=== PATIENT | male | born 1990 | race Caucasian/White ===

== ENCOUNTER → 2017-06-22 | Outpatient (CLI) | payer SELFPAY ==
[2017-06-22 17:36] LABS: ABSOLUTE BASOPHILS # (AUTO) 0.1 10^3/uL (0.0-0.2); ABSOLUTE LYMPHOCYTES (AUTO) 1.2 10^3/uL (0.5-4.7); ABSOLUTE MONOCYTES (AUTO) 0.5 10^3/uL (0.1-1.4); ABSOLUTE NEUT (AUTO) 5.3 10^3/uL (1.7-8.2); BASOPHILS % (AUTO) 0.9 % (0-2); EOSINOPHILS % (AUTO) 0.4 % (0-6); HEMATOCRIT 49.2 % (37.9-51.0); HEMOGLOBIN 17.1 g/dL (13.5-17.0); LYMPHOCYTES % (AUTO) 17.2 % (13-45); MEAN CORPUSCULAR HGB CONC 34.8 g/dL (32.0-36.0); MEAN CORPUSCULAR VOLUME 89 fl (80-97); MONOCYTES % (AUTO) 6.4 % (3-13); PLATELET COUNT 250 10^3/uL (150-450); RED BLOOD COUNT 5.52 10^6/uL (4.35-5.55); RED CELL DISTRIBUTION WIDTH 14.2 % (11.5-14.0); SEGMENTED NEUTROPHILS % (AUTO) 75.1 % (42-78); TOTAL CELLS COUNTED % (AUTO) 100 %; WHITE BLOOD COUNT 7.1 10^3/uL (4.0-10.5)
[2017-06-22 17:55] LABS: ALANINE AMINOTRANSFERASE 186 U/L (21-72); ALBUMIN 4.8 g/dL (3.5-5.0); ALKALINE PHOSPHATASE 86 U/L (38-126); ANION GAP 11 (5-19); ASPARTATE AMINO TRANSFERASE 82 U/L (17-59); BILIRUBIN,DIRECT 0.3 mg/dL (0.0-0.4); BILIRUBIN,TOTAL 0.7 mg/dL (0.2-1.3); BLOOD UREA NITROGEN 13 mg/dL (7-20); CALCIUM 10.1 mg/dL (8.4-10.2); CARBON DIOXIDE 30 mmol/L (22-30); CHLORIDE 104 mmol/L (98-107); GLUCOSE 91 mg/dL (75-110); POTASSIUM 4.3 mmol/L (3.6-5.0); SODIUM 144.5 mmol/L (137-145); TOTAL PROTEIN 7.4 g/dL (6.3-8.2)
[2017-06-22 17:59] LABS: C-REACTIVE PROTEIN < 5.0 mg/L (<10.0)
[2017-06-22 18:13] LABS: ERYTHROCYTE SEDIMENTATION RATE 4 mm/hr (0-15)
== END ==
LOC: LAB 16:54
PROVIDERS: ATTEND Family Medicine
DX: R10.9 Unspecified abdominal pain (principal)
CPT/HCPCS: 36415; 80053; 85025; 85652; 86140

== ENCOUNTER 2017-07-24 22:18 | Emergency (ER) | payer SELFPAY ==
--- NOTE | 2017-07-24 22:47 | ER Document Report ---
ED Medical Screen (RME) - General Chief Complaint: Abdominal Pain Stated Complaint: ABDOMINAL PAIN Time Seen by Provider: 07/24/17 22:46 Mode of Arrival: Ambulatory Information source: Patient Notes: 27-year-old presents to ED for complaint of right lower abdominal pain since about 2152. He has no nausea vomiting or diarrhea. He states he has a dull and sharp pain. He has active bowel sounds. States last time he ate was at 2 PM he ate a sub-with an orange soda. Has a history of bursitis and has had his tonsils and adenoids removed. He denies smoking drinking or drugs. He does have tenderness to the right lower quadrant. Abdomen is still soft. I have greeted and performed a rapid initial assessment of this patient. A comprehensive ED assessment and evaluation of the patient, analysis of test results and completion of medical decision making process will be conducted by an additional ED providers. TRAVEL OUTSIDE OF THE [place] IN LAST 30 DAYS: No - Related Data Allergies/Adverse Reactions: cefaclor [From Ceclor] Allergy (Verified 02/21/16 14:28) Past Medical History - Social History Chew tobacco use (# tins/day): No Drug Abuse: None Neurological Medical History: Reports: Hx Migraine Renal/ Medical History: Denies: Hx Peritoneal Dialysis Past Surgical History: Reports: Hx Tonsillectomy - and Adenoidectomy Physical Exam - Vital signs Vitals: Temp Pulse Resp BP Pulse Ox 98.5 F 102 H 16 144/96 H 98 07/24/17 22:21 07/24/17 22:21 07/24/17 22:21 07/24/17 22:21 07/24/17 22:21 Course - Vital Signs Vital signs: Temp Pulse Resp BP Pulse Ox 98.5 F 102 H 16 144/96 H 98 07/24/17 22:21 07/24/17 22:21 07/24/17 22:21 07/24/17 22:21 07/24/17 22:21
[2017-07-24 23:49] LABS: ABSOLUTE BASOPHILS # (AUTO) 0.1 10^3/uL (0.0-0.2); ABSOLUTE LYMPHOCYTES (AUTO) 1.4 10^3/uL (0.5-4.7); ABSOLUTE MONOCYTES (AUTO) 0.6 10^3/uL (0.1-1.4); ABSOLUTE NEUT (AUTO) 7.1 10^3/uL (1.7-8.2); BASOPHILS % (AUTO) 0.7 % (0-2); EOSINOPHILS % (AUTO) 0.5 % (0-6); HEMATOCRIT 46.3 % (37.9-51.0); HEMOGLOBIN 16.4 g/dL (13.5-17.0); MEAN CORPUSCULAR HEMOGLOBIN 31.4 pg (27.0-33.4); MEAN CORPUSCULAR HGB CONC 35.3 g/dL (32.0-36.0); MEAN CORPUSCULAR VOLUME 89 fl (80-97); MONOCYTES % (AUTO) 6.4 % (3-13); PLATELET COUNT 266 10^3/uL (150-450); RED BLOOD COUNT 5.21 10^6/uL (4.35-5.55); RED CELL DISTRIBUTION WIDTH 14.4 % (11.5-14.0); SEGMENTED NEUTROPHILS % (AUTO) 77.4 % (42-78); TOTAL CELLS COUNTED % (AUTO) 100 %; WHITE BLOOD COUNT 9.1 10^3/uL (4.0-10.5)
[2017-07-25 00:03] LABS: ALANINE AMINOTRANSFERASE 119 U/L (21-72); ALBUMIN 4.6 g/dL (3.5-5.0); ALKALINE PHOSPHATASE 83 U/L (38-126); ANION GAP 12 (5-19); ASPARTATE AMINO TRANSFERASE 58 U/L (17-59); BILIRUBIN,DIRECT 0.1 mg/dL (0.0-0.4); BILIRUBIN,TOTAL 0.3 mg/dL (0.2-1.3); BLOOD UREA NITROGEN 14 mg/dL (7-20); CALCIUM 9.6 mg/dL (8.4-10.2); CARBON DIOXIDE 28 mmol/L (22-30); CHLORIDE 104 mmol/L (98-107); GLUCOSE 89 mg/dL (75-110); LIPASE 140.3 U/L (23-300)
[2017-07-25 00:10] LABS: APPEARANCE,URINE CLEAR; BILIRUBIN,URINE NEGATIVE (NEGATIVE); COLOR,URINE YELLOW; GLUCOSE, URINE NEGATIVE (NEGATIVE); KETONES,URINE NEGATIVE (NEGATIVE); LEUKOCYTE ESTERASE,URINE NEGATIVE (NEGATIVE); NITRITE,URINE NEGATIVE (NEGATIVE); PROTEIN,URINE 30 mg/dL (NEGATIVE); UROBILINOGEN,URINE NEGATIVE mg/dL (<2.0)
[2017-07-25] MEDS ORDERED: NORMAL SALINE 1000 ML 1,000 ML IV ONE (00:31)
[2017-07-25] MEDS ORDERED: HYDROMORPHONE HCL INJ/PF 2 MG/ML AMPULE IV ONE (00:31)
--- NOTE | 2017-07-25 00:31 | ER Document Report ---
ED General - General Chief Complaint: Abdominal Pain Stated Complaint: ABDOMINAL PAIN Time Seen by Provider: 07/24/17 22:46 Mode of Arrival: Ambulatory Notes: Patient is a 27-year-old male presents with complaint of pain over the right lower quadrant of the abdomen. Also pain in the flank and back. No history of kidney stones. Recent fevers. No vomiting. No diarrhea. Pain started approximately 2 hours prior to arrival to the ER. No urinary symptoms. TRAVEL OUTSIDE OF THE [place] IN LAST 30 DAYS: No - Related Data Allergies/Adverse Reactions: cefaclor [From Ceclor] Allergy (Verified 02/21/16 14:28) sulfamethoxazole [From Bactrim] Allergy (Verified 07/25/17 00:46) tramadol [From Ultram] Allergy (Verified 07/25/17 00:46) trimethoprim [From Bactrim] Allergy (Verified 07/25/17 00:46) Past Medical History - General Information source: Patient - Social History Smoking Status: Never Smoker Chew tobacco use (# tins/day): No Frequency of alcohol use: None Drug Abuse: None Family History: Other - Migraine headaches Patient has suicidal ideation: No Patient has homicidal ideation: No Neurological Medical History: Reports: Hx Migraine Renal/ Medical History: Denies: Hx Peritoneal Dialysis Past Surgical History: Reports: Hx Tonsillectomy - and Adenoidectomy Review of Systems - Review of Systems Notes: My Normal Review Basic REVIEW OF SYSTEMS: CONSTITUTIONAL : Denies fever, chills, or sweats. Denies recent illness. EENT: Denies eye, ear, throat, or mouth pain or symptoms. Denies nasal or sinus congestion. RESPIRATORY: Denies cough, cold, or chest congestion. Denies shortness of breath, difficulty breathing, or wheezing. GASTROINTESTINAL: Right-sided abdominal pain. GENITOURINARY: Denies difficulty urinating, painful urination, burning, frequency, or blood in urine. MUSCULOSKELETAL: Denies neck or back pain or joint pain or swelling. SKIN: Denies rash or skin lesions. NEUROLOGICAL: Denies altered mental status or loss of consciousness. ALL OTHER SYSTEMS REVIEWED AND NEGATIVE. Physical Exam - Vital signs Vitals: Temp Pulse Resp BP Pulse Ox 98.5 F 102 H 16 144/96 H 98 07/24/17 22:21 07/24/17 22:21 07/24/17 22:21 07/24/17 22:21 07/24/17 22:21 - Notes Notes: General Appearance: Well nourished, alert, cooperative, no acute distress, mild obvious discomfort. Well-appearing. Vitals: reviewed, See vital signs table. Head: no swelling or tenderness to the head Eyes: PERRL, EOMI, Conjuctiva clear Mouth: No decreasd moisture Lungs: No wheezing, No rales, No rhonci, No accessory muscle use, good air exchange bilaterally. Heart: Normal rate, Regular rythm, No murmur, no rub Abdomen: Normal BS, soft, No rigidity, mild pain to palpation of the right lower quadrant of the abdomen. Remainder of the abdomen is nontender., No guarding, no rebound, no abdominal masses Genital: Mild tenderness in the inguinal area. There is no swelling or masses. No evidence of hernia on palpation. No swelling to the testicles. No pain to palpation of the testicles. Back: Some pain to palpation over the right lower back. No redness or swelling over the back. Extremities: strength 5/5 in all extremities, good pulses in all extremities, no swelling or tenderness in the extremities, no edema. Skin: warm, dry, appropriate color, no rash Neuro: speech clear, oriented x 3, normal affect, responds appropriately to questions. Course - Re-evaluation Re-evalutation: 07/25/17 00:29 Patient may lower quadrant pain that is reproducible also has pain in his back. He has no leukocytosis and no fever and his pain is only been there for 2 hours. I informed patient that my recommendation is to do a wait and watch approach and repeat his labs in 12 hours and reevaluate him. He continues to have pain or if his abdominal exam is more concerning or if his labs are showing concerns then do a CT scan at that time. I informed him that doing a CT scan now quite possibly will not show evidence of appendicitis even if he is an early appendicitis being that he has not had the pain for very long he has no leukocytosis. I informed him that if we do CT scan now that it will likely be negative and there is a chance he might need a repeat scan in 1224 hrs. I informed him that limiting radiation will be of his benefit as recurrent CT scans can lead to cancer. I try to explain to the this to the patient length. Patient says he still wants a CT scan performed now. He is understanding that this does lead to increase exposure of radiation could lead to cancer. He is completely understanding of this. He also has a family member in the room who is also listen to conversation. Patient still wants CT scan performed now and does not want to wait as I recommended. 07/25/17 05:55 CT scan was performed and did not show evidence of appendicitis. The pain is actually improved now. He says he has just very mild pain. He did have lower abdominal pain and therefore due to testicular exam. This is negative. Patient denies any pain in his testicles. CT scan does show an identical finding of a lesion on the right kidney. I did follow this up with an ultrasound which confirms that the lesion is there. Official read from radiologist is not available at this time because they are having difficulty transferring her images to the radiologist. I informed the patient the radiologist read of the CT scan. I informed him that even though cancer is less likely some important he follows closely with his doctor for reevaluation and repeat imaging as well as possible biopsy. Regards to his abdominal pain, informed him that there was appendicitis still a possibility although I think this is less likely. Informed to return to ER within 24 hours if he still having pain. I encourage him return to ER immediately if he has worsening pain , fevers, vomiting, or feels unwell. Patient agrees with plan will be discharged home. Dictation of this chart was performed using voice recognition software; therefore, there may be some unintended grammatical errors. - Vital Signs Vital signs: Temp Pulse Resp BP Pulse Ox 98.4 F 83 16 118/96 H 98 07/25/17 03:23 07/25/17 03:23 07/25/17 03:23 07/25/17 03:23 07/24/17 22:21 - Laboratory Result Diagrams: 07/24/17 23:15 07/24/17 23:15 Laboratory results interpreted by me: 07/24/17 07/24/17 07/24/17 23:15 23:15 23:15 RDW 14.4 H ALT 119 H Urine Protein 30 H Discharge - Discharge Clinical Impression: Kidney lesion Abdominal pain Qualifiers: Abdominal location: right lower quadrant Qualified Code(s): R10.31 - Right lower quadrant pain Condition: Good Disposition: HOME, SELF-CARE Instructions: Oral Narcotic Medication ([facility]) Additional Instructions: Your CT scan showed a lesion in your kidney that is also seen on ultrasound. These are rarely cancer, but cancer is always still a possibility. You therefore need to follow up with Dr. Gurrola for reevaluation and to arrange a repeat ultrasound and possible biopsy. As for your abdominal pain;you CT scan did not show evidence of appendicitis. As discussed with you early appendicitis does nto always show up on CT scan therefore you need to return to the ER within 24 hours for reevaluation if you have recurrent pain or feel unwell. Please return to the ER immediately if you have worsening pain, fevers, vomiting , or have any further concerns. Referrals: RAS GURROLA MD [Primary Care Provider] - Follow up in 3-5 days
--- NOTE | 2017-07-25 02:11 | RADIOLOGY REPORT (SQ) ---
EXAM DESCRIPTION: CT ABDOMEN AND PELVIS WITH CONTRAST CLINICAL HISTORY: right lower quad abdominal pain COMPARISON: None Available. TECHNIQUE: CT of the abdomen and pelvis are performed during IV bolus administration of 100 mL of Isovue-370. Delayed phase imaging also obtained. DLP: 2552.85 mGycm FINDINGS: Abdomen: The liver has normal size and density. No intrahepatic mass or biliary dilatation. No calcified gallstones. The spleen, pancreas, and adrenal glands are unremarkable. In the inferior pole of the right kidney there is a 1.9 cm hypodensity that demonstrates enhancement with washout on delayed phase images. Bosniak class I 1.0 cm left renal cyst. No hydronephrosis or obstructing calculus. The aorta and IVC have normal caliber and position. The portal vein patent. The proximal visceral and renal arteries are patent. No free intraperitoneal air. The stomach and duodenum have normal course. Pelvis: Prostate is not enlarged. Urinary bladder is unremarkable. No free pelvic fluid or lymphadenopathy. No dilated loops of large or small bowel. Normal appendix. The visualized lung bases are clear. No destructive bone lesions identified. IMPRESSION: 1. In the inferior pole of the right kidney there is an enhancing lesion with washout on delayed phase imaging measuring 1.9 cm. This would be an atypical age for renal cell carcinoma however differential considerations include renal cell carcinoma, lipid poor angiomyolipoma, renal oncocytoma or focal pyelonephritis. Correlation with urinalysis recommended. Short interval follow-up imaging in 2-4 weeks with contrast-enhanced CT / MRI recommended. This exam was performed according to our departmental dose-optimization program, which includes automated exposure control, adjustment of the mA and/or kV according to patient size and/or use of iterative reconstruction technique.
[2017-07-25] MEDS ORDERED: HYDROCODONE/ACETAMINOPHEN 5-325 MG (6 TAB/ER DISP) PO PRN (05:48)
[2017-07-25 06:04] VITALS: BP 117/59
--- NOTE | 2017-07-25 08:23 | RADIOLOGY REPORT (SQ) ---
EXAM DESCRIPTION: U/S RETROPERITON (RENAL/AORTA) COMPLETED DATE/TIME: 07/25/2017 4:57 am REASON FOR STUDY: right kidney lesion CT report; Indetermine 1.9 cm mass lower pole right kidney. C ortical cyst upper pole left kidney. COMPARISON: CT abdomen and pelvis with contrast 07/25/2017. TECHNIQUE: Static and dynamic grayscale images acquired of the aorta and stored on PACs. Selected co chata Doppler and spectral images recorded. LIMITATIONS: None. FINDINGS: RIGHT KIDNEY: The right kidney measures 12.7 x 5.8 x 6 cm. In the lower pole there is a hyper echoic irregular marginated mass measuring 2.2 x 2.4 x 2 cm with evidence of color Doppler keturah w. LEFT KIDNEY: The left kidney measures 11.4 x 5.7 x 5.4 cm. In the mid left kidney there is evidence of a circumscribed hypoechoic mass measuring 1.8 x 1.5 x 1.6 cm which could represent a complex cyst . URINARY BLADDER: Bilateral ureteral jets noted. IMPRESSION: 1. Findings consistent with a 2.2 x 2.4 x 2 cm hyperechoic mass lower pole right kidney with irregular margin. Differential again includes lipid poor angiomyolipoma, renal cell carcinoma. Follow-up with MRI could be useful. 2. Findings most consistent with small 1.8 cm cortical cyst mid left kidney. TECHNICAL DOCUMENTATION: JOB ID: [id number] [id number] 2010 [employer]- All Rights Reserved
== END 2017-07-25 06:04 | disposition home or self-care (01) ==
LOC: ER 22:18
DX: R10.31 Right lower quadrant pain (principal); M54.9 Dorsalgia, unspecified; N28.9 Disorder of kidney and ureter, unspecified; Z88.1 Allergy status to other antibiotic agents; Z88.5 Allergy status to narcotic agent
CPT/HCPCS: 99284; 96361; 96374; 36415; 83690; 85025; 80053; 81001; 76770; 74177; J1170; J7030

== ENCOUNTER 2017-07-28 03:52 | Emergency (ER) | payer SELFPAY ==
[2017-07-28] MEDS ORDERED: LIDOCAINE 5% (700 MG) TRANSDERMAL ADH..PATCH TP ONE (06:42)
[2017-07-28] MEDS ORDERED: KETOROLAC TROMETHAMINE INJ/PF 30 MG/1 ML SDV IV ONE (06:42)
--- NOTE | 2017-07-28 06:43 | ER Document Report ---
ED Cardiac - General Chief Complaint: Chest Pain Stated Complaint: CHEST PAIN Time Seen by Provider: 07/28/17 06:31 Notes: The patient is a 27-year-old male who presents with 4 hours of left upper chest wall pain that is worse with movement and palpation. He was lifting heavy buckets at work yesterday. He has not tried anything help. Denies smoking, family history of early cardiac issues, shortness of breath, fevers, cough, leg swelling, hemoptysis, back pain, numbness, tingling or rash. TRAVEL OUTSIDE OF THE [place] IN LAST 30 DAYS: No - Related Data Allergies/Adverse Reactions: cefaclor [From Ceclor] Allergy (Verified 07/28/17 03:58) sulfamethoxazole [From Bactrim] Allergy (Verified 07/28/17 03:58) tramadol [From Ultram] Allergy (Verified 07/28/17 03:58) trimethoprim [From Bactrim] Allergy (Verified 07/28/17 03:58) Past Medical History - General Information source: Patient - Social History Smoking Status: Never Smoker Frequency of alcohol use: None Drug Abuse: None Family History: Other - Migraine headaches Patient has suicidal ideation: No Patient has homicidal ideation: No Neurological Medical History: Reports: Hx Migraine Renal/ Medical History: Denies: Hx Peritoneal Dialysis Past Surgical History: Reports: Hx Tonsillectomy - and Adenoidectomy Review of Systems - Review of Systems Notes: REVIEW OF SYSTEMS: CONSTITUTIONAL: -fevers, -chills EENT: -eye pain, -difficulty swallowing, -nasal congestion CARDIOVASCULAR: +chest pain, -syncope. RESPIRATORY: -cough, -SOB GASTROINTESTINAL: -abdominal pain, -nausea, -vomiting, -diarrhea GENITOURINARY: -dysuria, -hematuria MUSCULOSKELETAL: -back pain, -neck pain SKIN: -rash or skin lesions. HEMATOLOGIC: -easy bruising or bleeding. LYMPHATIC: -swollen, enlarged glands. NEUROLOGICAL: -altered mental status or loss of consciousness, -headache, - neurologic symptoms PSYCHIATRIC: -anxiety, -depression. ALL OTHER SYSTEMS REVIEWED AND NEGATIVE. Physical Exam - Vital signs Vitals: Temp Pulse Resp BP Pulse Ox 98.5 F 81 16 133/84 H 96 07/28/17 04:09 07/28/17 04:09 07/28/17 04:09 07/28/17 04:09 07/28/17 04:09 - Notes Notes: PHYSICAL EXAMINATION: GENERAL: Well-appearing, well-nourished and in no acute distress. HEAD: Atraumatic, normocephalic. EYES: Pupils equal round and reactive to light, extraocular movements intact, sclera anicteric, conjunctiva are normal. ENT: nares patent, oropharynx clear without exudates. Moist mucous membranes. NECK: Normal range of motion, supple without lymphadenopathy LUNGS: Breath sounds clear to auscultation bilaterally and equal. No wheezes rales or rhonchi. CHEST WALL: Tenderness over left upper chest wall, reproduces symptoms. HEART: Regular rate and rhythm without murmurs ABDOMEN: Soft, nontender, normoactive bowel sounds. No guarding, no rebound. No masses appreciated. EXTREMITIES: Normal range of motion, no pitting or edema. No cyanosis. NEUROLOGICAL: Cranial nerves grossly intact. Normal speech, normal gait. Normal sensory and motor exams. PSYCH: Normal mood, normal affect. SKIN: Warm, Dry, normal turgor, no rashes or lesions noted. Course - Re-evaluation Re-evalutation: Patient appears very well and his vital signs are normal. EKG does not show any evidence of acute ischemia and he is PERC negative. His HEART score is 0. Suspect chest wall strain and instructed him about treatment with anti- inflammatories and Lidoderm patch with strict follow-up at his primary care physician for recheck of his symptoms. Given return precautions and he understands. - Vital Signs Vital signs: Temp Pulse Resp BP Pulse Ox 98.5 F 81 13 109/71 97 07/28/17 04:09 07/28/17 04:09 07/28/17 06:00 07/28/17 06:01 07/28/17 06:01 - Diagnostic Test Radiology reviewed: Image reviewed, Reports reviewed Radiology results interpreted by me: CXR: NAD - EKG Interpretation by Me EKG shows normal: Sinus rhythm, [place], Intervals, QRS Complexes, ST-T Waves Rate: Normal Discharge - Discharge Clinical Impression: Chest pain Qualifiers: Chest pain type: unspecified Qualified Code(s): R07.9 - Chest pain, unspecified Condition: Stable Disposition: HOME, SELF-CARE Additional Instructions: CHEST PAIN OF UNCLEAR CAUSE: The exact cause of your chest pain isn't clear. Fortunately, there is no evidence of a dangerous medical condition. Further testing may be required to find the source of the pain. Most often, we find that this pain is coming from the chest wall -- the muscles or rib joints in the chest. But chest pain can come from the lung and lung lining, the esophagus, the heart valves or heart lining, and even the stomach or gallbladder. Rest. Eat lightly until the pain is gone. We may prescribe medicine for pain and inflammation. You should call the physician immediately if the pain radiates to the shoulder, jaw or arms; if you start to run a fever or develop a cough; or if you develop shortness of breath, or other new or alarming symptoms. NORMAL EXAM AND WORKUP: At this time, your examination and workup show no significant abnormality. No significant abnormal physical findings were noted. All laboratory, EKG, and imaging (x-ray, CT scans, ultrasound) studies that were ordered show no significant abnormality. Although your examination and all studies that were ordered showed no significant abnormal finding, there are no examinations and no studies that are 100% accurate. There is always the possibility that some abnormality could exist and not be detected with physical examination or within the limits and capabilities of laboratory and other studies. You should return or follow up as you were instructed on your visit today for further evaluation if your symptoms do not resolve. CHEST WALL PAIN: Your chest pain may be coming from the chest wall. This is often caused by straining the muscles or joints in the chest during physical activity, direct trauma, coughing, or vigorous vomiting. Persons with arthritis are especially prone to this type of pain, due to inflammation of the cartilage joints near the breast bone. Occasionally, no cause can be found. Rest from strenuous physical activity. This kind of chest pain is usually made worse by movement of the chest. Depending on the symptoms, we may prescribe medicine for pain, muscle relaxation, and antiinflammatory effects. If the pain is new, and seems to be due to muscle strain, cold packs can help. Otherwise, apply gentle warmth to the painful area for 15 minutes every hour or two. You should call contact the doctor immediately if things change. Further evaluation is needed if you develop a fever or cough, if the nature of the pain changes, or if you become short of breath. FOLLOW-UP CARE: If you have been referred to a physician for follow-up care, call the physician s office for an appointment as you were instructed or within the next two days. If you experience worsening or a significant change in your symptoms, notify the physician immediately or return to the Emergency Department at any time for re-evaluation. Prescriptions: Lidocaine [Lidoderm 5% (700 mg) Transdermal Patch] 1 patch TP DAILY #10 adh..patch Naproxen [Naprosyn 250 mg Tablet] 500 mg PO Q12H PRN #14 tablet PRN Reason: Forms: Elevated Blood Pressure Referrals: MAHESH CHARLES DO [NO LOCAL MD] - Follow up as needed
[2017-07-28 06:59] VITALS: BP 125/86
--- NOTE | 2017-07-28 07:24 | RADIOLOGY REPORT (SQ) ---
EXAM DESCRIPTION: CHEST SINGLE VIEW CLINICAL HISTORY: chest pain COMPARISON: None. FINDINGS: Single frontal view of the chest. The cardiomediastinal silhouette has normal size and contour. No consolidation, pneumothorax, or pleural effusion. No displaced rib fractures identified. Upper abdominal soft tissues are unremarkable. Leads overlie the chest. IMPRESSION: 1. No acute pulmonary process identified.
--- NOTE | 2017-07-28 10:21 | EKG REPORT ---
SEVERITY:- OTHERWISE NORMAL ECG - SINUS RHYTHM BORDERLINE RIGHT AXIS DEVIATION : Confirmed by: Lori Mak 28-Jul-2017 10:19:50
== END 2017-07-28 07:00 | disposition home or self-care (01) ==
LOC: ER 03:52
DX: R07.9 Chest pain, unspecified (principal); R07.89 Other chest pain; X50.0XXA Overexertion from strenuous movement or load, initial encounter
CPT/HCPCS: 93005; 99285; 96374; 71045; 93010; J1885

== ENCOUNTER 2017-10-29 05:45 | Emergency (ER) | payer SELFPAY ==
[2017-10-29] MEDS ORDERED: LIDOCAINE 5% (700 MG) TRANSDERMAL ADH..PATCH TP ONE (07:11)
[2017-10-29] MEDS ORDERED: KETOROLAC TROMETHAMINE INJ/PF 30 MG/1 ML SDV IV ONE (07:11)
--- NOTE | 2017-10-29 07:13 | ER Document Report ---
ED General - General Chief Complaint: Chest Pain Stated Complaint: CHEST PAIN Time Seen by Provider: 10/29/17 06:57 TRAVEL OUTSIDE OF THE [place] IN LAST 30 DAYS: No - HPI Patient complains to provider of: Left-sided chest pain Notes: Patient coming in for left-sided chest pain ongoing for approximate last 12 hours. Patient denies any trauma states does hurt to take a deep breath and movement of pain with movement of the left shoulder. Patient states numbness going down his left arm. Patient states the numbness and left arm intermittent for approximately a week. Patient denies smoking drinking any drug use. Patient denies any past medical history. Patient denies any recent travel denies any fevers chills nausea vomiting diarrhea. - Related Data Allergies/Adverse Reactions: cefaclor [From Ceclor] Allergy (Verified 07/28/17 03:58) sulfamethoxazole [From Bactrim] Allergy (Verified 07/28/17 03:58) tramadol [From Ultram] Allergy (Verified 07/28/17 03:58) trimethoprim [From Bactrim] Allergy (Verified 07/28/17 03:58) Past Medical History - Social History Smoking Status: Never Smoker Frequency of alcohol use: Occasional Family History: Other - Migraine headaches Patient has suicidal ideation: No Patient has homicidal ideation: No Neurological Medical History: Reports: Hx Migraine Renal/ Medical History: Denies: Hx Peritoneal Dialysis Past Surgical History: Reports: Hx Tonsillectomy - and Adenoidectomy Review of Systems - Review of Systems Constitutional: No symptoms reported EENT: No symptoms reported Cardiovascular: Chest pain Respiratory: No symptoms reported Gastrointestinal: No symptoms reported Genitourinary: No symptoms reported Male Genitourinary: No symptoms reported Musculoskeletal: No symptoms reported Skin: No symptoms reported Hematologic/Lymphatic: No symptoms reported Neurological/Psychological: No symptoms reported -: Yes All other systems reviewed and negative Physical Exam - Vital signs Vitals: Temp Pulse Resp BP Pulse Ox 98.4 F 91 17 133/67 H 95 10/29/17 05:53 10/29/17 05:53 10/29/17 05:53 10/29/17 05:53 10/29/17 05:53 Interpretation: Normal - General General appearance: Appears well, Alert - HEENT Head: Normocephalic, Atraumatic Eyes: Normal Pupils: PERRL - Respiratory Respiratory status: No respiratory distress Chest status: Tender - Tenderness to palpation the left chest wall were consistent with possible PIC muscle strength the patient is significantly tender at palpation of the coracoid process along the sternal border and along the left lateral rib cage. No signs of trauma no rashes Breath sounds: Normal Chest palpation: Normal - Cardiovascular Rhythm: Regular Heart sounds: Normal auscultation Murmur: No - Abdominal Inspection: Normal Distension: No distension Bowel sounds: Normal Tenderness: Nontender Organomegaly: No organomegaly - Back Back: Normal, Nontender - Extremities General upper extremity: Normal inspection, Nontender, Normal color, Normal ROM , Normal temperature General lower extremity: Normal inspection, Nontender, Normal color, Normal ROM , Normal temperature, Normal weight bearing. No: Asad's sign - Neurological Neuro grossly intact: Yes Cognition: Normal Orientation: AAOx4 [place] Coma Scale Eye Opening: Spontaneous Gustavo Coma Scale Verbal: Oriented Gustavo Coma Scale Motor: Obeys Commands Gustavo Coma Scale Total: 15 Speech: Normal Motor strength normal: LUE, RUE, LLE, RLE Sensory: Normal - Psychological Associated symptoms: Normal affect, Normal mood - Skin Skin Temperature: Warm Skin Moisture: Dry Skin Color: Normal Course - Re-evaluation Re-evalutation: 10/29/17 15:00 Do believe patient has more likely take muscle strain or chest wall pain. Patient was educated about use Tylenol Motrin. Patient will be discharged home. The patient has atypical chest pain as the patient's chest pain is not suggestive of pulmonary embolus, cardiac ischemia, aortic dissection, or other serious etiology. Given the extremely low risk of these diagnoses further testing and evaluation for these possibilities does not appear to be indicated at this time. The patient has been instructed to return if the symptoms worsen or change in any way. - Vital Signs Vital signs: Temp Pulse Resp BP Pulse Ox 98.1 F 83 15 103/68 98 10/29/17 07:56 10/29/17 07:56 10/29/17 07:56 10/29/17 07:56 10/29/17 07:56 Discharge - Discharge Clinical Impression: Chest wall pain Condition: Good Disposition: HOME, SELF-CARE Instructions: Anti-Inflammatory Medication ([facility]), Chest Wall Pain ([facility]) Additional Instructions: Chest pain today is consistent with muscle skeletal pain . Your EKG does not show signs of cardiac damage. Your physical examination is consistent with chest wall pain. Treatment for chest wall plane involves hydration Tylenol and anti-inflammatory medication such as Motrin. He may also place warm packs and ice packs on the chest wall to help out with pain. Return to ER symptoms worsen. Follow-up with your primary care physician Prescriptions: Ibuprofen [Motrin 800 mg Tablet] 800 mg PO Q8H PRN #30 tab PRN Reason: Forms: Return to Work Referrals: RAS GURROLA MD [Primary Care Provider] - Follow up as needed
[2017-10-29 07:58] VITALS: BP 103/68
--- NOTE | 2017-10-29 08:42 | EKG REPORT ---
SEVERITY:- NORMAL ECG - SINUS RHYTHM : Confirmed by: Lori Mak 29-Oct-2017 08:41:08
== END 2017-10-29 07:59 | disposition home or self-care (01) ==
LOC: ER 05:45
DX: R07.89 Other chest pain (principal); R20.0 Anesthesia of skin; Z88.1 Allergy status to other antibiotic agents; Z88.5 Allergy status to narcotic agent
CPT/HCPCS: 93005; 99284; 96374; 93010; J1885

== ENCOUNTER 2018-01-24 14:47 | Emergency (ER) | payer OTHER ==
[2018-01-24] MEDS ORDERED: DIPH/PERTUSS(ACELL)/TETANUS VAC/PF 0.5 ML SYR (>=10YO) IM ONE (15:11)
[2018-01-24] MEDS ORDERED: IBUPROFEN 800 MG TABLET PO ONE (15:11)
[2018-01-24] MEDS ORDERED: HYDROCODONE/ACETAMINOPHEN 5-325 MG TABLET PO ONE (15:11)
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
[2018-01-24 16:28] VITALS: BP 137/86
== END 2018-01-24 16:40 | disposition home or self-care (01) ==
LOC: ER 14:47
DX: S70.01XA Contusion of right hip, initial encounter (principal); S93.421A Sprain of deltoid ligament of right ankle, initial encounter; S50.311A Abrasion of right elbow, initial encounter; V28.4XXA Motorcycle driver injured in noncollision transport accident in traffic accident, initial encounter
CPT/HCPCS: 99283; 90471; 73610; 73630; 90715; L1902

== ENCOUNTER 2019-02-03 21:20 | Emergency (ER) | payer SELFPAY ==
[2019-02-04] MEDS ORDERED: KETOROLAC TROMETHAMINE 60 MG/2 ML SDV IM ONE (00:54)
[2019-02-04] MEDS ORDERED: OXYCODONE-ACETAMINOPHEN 5-325 MG TABLET PO ONE (00:54)
[2019-02-04] MEDS ORDERED: ONDANSETRON 4 MG TAB.RAPDIS PO ONE (00:54)
--- NOTE | 2019-02-04 00:59 | ER Document Report ---
Addendum entered and electronically signed by BARBER LOGAN PA 02/04/19 01:08: Course - Re-evaluation Re-evalutation: 02/04/19 01:08 THIS TRIAGE WAS ENTERED ON THE WRONG PATIENT, PLEASE DISREGARD - Vital Signs Vital signs: Temp Pulse Resp BP Pulse Ox 98.5 F 84 24 H 136/85 H 95 02/03/19 21:39 02/03/19 21:39 02/03/19 21:39 02/03/19 21:39 02/03/19 21:39 Original Note: ED Medical Screen (RME) - General Chief Complaint: Abdominal Pain Stated Complaint: ABDOMINAL PAIN Time Seen by Provider: 02/04/19 00:35 Primary Care Provider: RAS GURROLA MD [Primary Care Provider] - Follow up as needed Notes: 28-year-old male chief complaint of sudden onset right flank pain radiating to the right abdomen that started at 9:30 PM tonight, he does report a history of kidney stones and he is always been able to pass them. Patient has been vomiting multiple times. He denies any other complaints. TRAVEL OUTSIDE OF THE [place] IN LAST 30 DAYS: No - Related Data Allergies/Adverse Reactions: cefaclor [From Ceclor] Allergy (Verified 07/28/17 03:58) sulfamethoxazole [From Bactrim] Allergy (Verified 07/28/17 03:58) tramadol [From Ultram] Allergy (Verified 07/28/17 03:58) trimethoprim [From Bactrim] Allergy (Verified 07/28/17 03:58) Past Medical History Neurological Medical History: Reports: Hx Migraine Renal/ Medical History: Denies: Hx Peritoneal Dialysis Past Surgical History: Reports: Hx Tonsillectomy - and Adenoidectomy Physical Exam - Vital signs Vitals: Temp Pulse Resp BP Pulse Ox 98.5 F 84 24 H 136/85 H 95 02/03/19 21:39 02/03/19 21:39 02/03/19 21:39 02/03/19 21:39 02/03/19 21:39 - General General appearance: No: Appears well - Patient appears to be in a lot of pain, diaphoretic, vomiting - Abdominal Tenderness: Tender - Tender generally over the right side of the abdomen, nonspecific, no overt guarding noted Course - Re-evaluation Re-evalutation: 02/04/19 00:59 I have greeted and performed a rapid initial assessment of this patient. A comprehensive ED assessment and evaluation of the patient, analysis of test results and completion of the medical decision making process will be conducted by additional ED providers. - Vital Signs Vital signs: Temp Pulse Resp BP Pulse Ox 98.5 F 84 24 H 136/85 H 95 02/03/19 21:39 02/03/19 21:39 02/03/19 21:39 02/03/19 21:39 02/03/19 21:39 Doctor's Discharge - Discharge Referrals: RAS GURROLA MD [Primary Care Provider] - Follow up as needed
[2019-02-04] MEDS ORDERED: HYDROCODONE/ACETAMINOPHEN 5-325 MG TABLET PO ONE (01:14)
--- NOTE | 2019-02-04 01:25 | ER Document Report ---
ED Medical Screen (RME) - General Chief Complaint: Abdominal Pain Stated Complaint: ABDOMINAL PAIN Time Seen by Provider: 02/04/19 00:35 Primary Care Provider: RAS GURROLA MD [Primary Care Provider] - Follow up as needed Notes: Patient is a 28-year-old male who presents to the emergency department with a chief complaint of right lower quadrant abdominal pain. His pain started 1 hour prior to arrival to the emergency department. States he is having normal bowel movements. He has never had anything like this before. No past abdominal surgical history. Exam: Tender right lower quadrant abdomen, exam limited due to obesity and patient in sitting position. I have greeted and performed a rapid initial assessment of this patient. A comprehensive ED assessment and evaluation of the patient, analysis of test results and completion of medical decision making process will be conducted by an additional ED providers. TRAVEL OUTSIDE OF THE [place] IN LAST 30 DAYS: No - Related Data Allergies/Adverse Reactions: cefaclor [From Ceclor] Allergy (Verified 07/28/17 03:58) sulfamethoxazole [From Bactrim] Allergy (Verified 07/28/17 03:58) tramadol [From Ultram] Allergy (Verified 07/28/17 03:58) trimethoprim [From Bactrim] Allergy (Verified 07/28/17 03:58) Past Medical History Neurological Medical History: Reports: Hx Migraine Renal/ Medical History: Denies: Hx Peritoneal Dialysis Past Surgical History: Reports: Hx Tonsillectomy - and Adenoidectomy Physical Exam - Vital signs Vitals: Temp Pulse Resp BP Pulse Ox 98.5 F 84 24 H 136/85 H 95 02/03/19 21:39 02/03/19 21:39 02/03/19 21:39 02/03/19 21:39 02/03/19 21:39 Course - Vital Signs Vital signs: Temp Pulse Resp BP Pulse Ox 98.5 F 84 24 H 136/85 H 95 02/03/19 21:39 02/03/19 21:39 02/03/19 21:39 02/03/19 21:39 02/03/19 21:39 Doctor's Discharge - Discharge Referrals: RAS GURROLA MD [Primary Care Provider] - Follow up as needed
[2019-02-04 01:54] LABS: ABSOLUTE BASOPHILS # (AUTO) 0.1 10^3/uL (0.0-0.2); ABSOLUTE EOSINOPHILS # (AUTO) 0.2 10^3/uL (0.0-0.6); ABSOLUTE LYMPHOCYTES (AUTO) 1.7 10^3/uL (0.5-4.7); ABSOLUTE MONOCYTES (AUTO) 0.4 10^3/uL (0.1-1.4); BASOPHILS % (AUTO) 1.3 % (0-2); HEMATOCRIT 49.6 % (37.9-51.0); HEMOGLOBIN 16.8 g/dL (13.5-17.0); LYMPHOCYTES % (AUTO) 26.2 % (13-45); MEAN CORPUSCULAR HEMOGLOBIN 30.3 pg (27.0-33.4); MEAN CORPUSCULAR HGB CONC 33.9 g/dL (32.0-36.0); MEAN CORPUSCULAR VOLUME 90 fl (80-97); MONOCYTES % (AUTO) 6.9 % (3-13); PLATELET COUNT 275 10^3/uL (150-450); RED BLOOD COUNT 5.53 10^6/uL (4.35-5.55); RED CELL DISTRIBUTION WIDTH 14.3 % (11.5-14.0); SEGMENTED NEUTROPHILS % (AUTO) 62.6 % (42-78); TOTAL CELLS COUNTED % (AUTO) 100 %; WHITE BLOOD COUNT 6.4 10^3/uL (4.0-10.5)
[2019-02-04 02:09] LABS: BILIRUBIN,TOTAL 0.7 mg/dL (0.2-1.3)
[2019-02-04 03:11] LABS: APPEARANCE,URINE CLEAR; BILIRUBIN,URINE NEGATIVE (NEGATIVE); COLOR,URINE YELLOW; GLUCOSE, URINE NEGATIVE (NEGATIVE); KETONES,URINE TRACE mg/dL (NEGATIVE); LEUKOCYTE ESTERASE,URINE NEGATIVE (NEGATIVE); NITRITE,URINE NEGATIVE (NEGATIVE); PROTEIN,URINE NEGATIVE (NEGATIVE); URINE SPECIFIC GRAVITY 1.025
--- NOTE | 2019-02-04 04:02 | ER Document Report ---
ED GI/ - General Chief Complaint: Abdominal Pain Stated Complaint: ABDOMINAL PAIN Time Seen by Provider: 02/04/19 00:35 Primary Care Provider: RAS GURROLA MD [Primary Care Provider] - Follow up as needed Notes: Patient is a 28-year-old male that comes to the emergency department for chief complaint of pain in the right lower abdomen. Pain started approximately 1 hour prior to the emergency department while he was lying down, he states it was a sudden "pinching feeling", he states the pain has significantly reduced now. He states he had a normal bowel movement this evening. He denies nausea or vomiting, fever/chills, injury. 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 TRAVEL OUTSIDE OF THE [place] IN LAST 30 DAYS: No - Related Data Allergies/Adverse Reactions: cefaclor [From Ceclor] Allergy (Verified 07/28/17 03:58) sulfamethoxazole [From Bactrim] Allergy (Verified 07/28/17 03:58) tramadol [From Ultram] Allergy (Verified 07/28/17 03:58) trimethoprim [From Bactrim] Allergy (Verified 07/28/17 03:58) Past Medical History - General Information source: Patient - Social History Smoking Status: Never Smoker Chew tobacco use (# tins/day): No Frequency of alcohol use: None Drug Abuse: None Lives with: Parents Family History: Reviewed & Not Pertinent, Other - Migraine headaches Patient has suicidal ideation: No Patient has homicidal ideation: No Neurological Medical History: Reports: Hx Migraine Renal/ Medical History: Denies: Hx Peritoneal Dialysis Past Surgical History: Reports: Hx Tonsillectomy - and Adenoidectomy Review of Systems - Review of Systems Constitutional: No symptoms reported EENT: No symptoms reported Cardiovascular: No symptoms reported Respiratory: No symptoms reported Gastrointestinal: See HPI Genitourinary: No symptoms reported Male Genitourinary: No symptoms reported Musculoskeletal: No symptoms reported Skin: No symptoms reported Hematologic/Lymphatic: No symptoms reported Neurological/Psychological: No symptoms reported Physical Exam - Vital signs Vitals: Temp Pulse Resp BP Pulse Ox 98.5 F 84 24 H 136/85 H 95 02/03/19 21:39 02/03/19 21:39 02/03/19 21:39 02/03/19 21:39 02/03/19 21:39 - Notes Notes: GENERAL: Alert, interacts well. No acute distress. HEAD: Normocephalic, atraumatic. EYES: Pupils equal, round, and reactive to light. Extraocular movements intact. ENT: Oral mucosa moist, tongue midline. Oropharynx unremarkable. Airway patent. LUNGS: Clear to auscultation bilaterally, no wheezes, rales, or rhonchi. No respiratory distress. HEART: Regular rate and rhythm. No murmur ABDOMEN: Soft, non-tender. Patient reports pain when I palpate over the right side of the abdomen but no pain response noted. Non-distended. Bowel sounds present in all 4 quadrants. GENITOURINARY: Deferred EXTREMITIES: Moves all 4 extremities spontaneously. No edema, normal radial and dorsalis pedis pulses bilaterally. No cyanosis. BACK: no cervical, thoracic, lumbar midline tenderness. No saddle anesthesia, normal distal neurovascular exam. Moves all extremities in full range of motion. NEUROLOGICAL: Alert and oriented x3. Normal speech. Cranial nerves II through XII grossly intact. PSYCH: Normal affect, normal mood. SKIN: Warm, dry, normal turgor. No rashes or lesions noted. Course - Re-evaluation Re-evalutation: CBC generally unremarkable, chemistry nonspecific, urine shows elevated specific gravity and ketones. Patient given IV fluids. Based on patient's evaluation, improved symptoms, I suspect this is not acute appendicitis or acute intra- abdominal pathology. I did discuss with patient, discussed treatment options fo r suspected bowel source, patient became concerned, is very concerned about the amount of pain that he had along with his history of cancer, he wants the CAT scan imaging. After additional discussion this was provided, shows incidental findings but no acute process. I did show this to patient, he is very satisfied with this and states he is now ready to leave. Stable at time of discharge. - Vital Signs Vital signs: Temp Pulse Resp BP Pulse Ox 98.4 F 80 17 133/84 H 99 02/04/19 07:17 02/04/19 07:17 02/04/19 07:17 02/04/19 07:17 02/04/19 07:17 - Laboratory Result Diagrams: 02/04/19 01:43 02/04/19 01:43 Laboratory results interpreted by me: 02/04/19 02/04/19 02/04/19 01:43 01:43 02:56 RDW 14.3 H Chloride 108 H AST 62 H Urine Ketones TRACE H Urine Urobilinogen 4.0 H Discharge - Discharge Clinical Impression: Abdominal pain Qualifiers: Abdominal location: generalized Qualified Code(s): R10.84 - Generalized abdominal pain Condition: Stable Disposition: HOME, SELF-CARE Additional Instructions: Your work-up shows some dehydration which has been addressed, your remaining work-up does not show any concerning findings at this time. The exact cause of your pain is uncertain. I do recommend that you take the Bentyl if needed for cramping, I also recommend you take the stool softener Colace for the next several days. Symptoms should resolve with time. Return if you worsen including return or severe pain, vomiting, fever, or any other concerning or worsening symptoms. Prescriptions: Dicyclomine HCl [Bentyl 20 mg Tablet] 20 mg PO QID PRN #20 tablet PRN Reason: Docusate Sodium [Colace 100 mg Capsule] 100 mg PO ASDIR PRN #30 capsule PRN Reason: Referrals: RAS GURROLA MD [Primary Care Provider] - Follow up as needed
[2019-02-04] MEDS ORDERED: NORMAL SALINE 1000 ML 1,000 ML IV ONE (04:28)
[2019-02-04 04:30] LABS: ALKALINE PHOSPHATASE 97 U/L (38-126); ANION GAP 12 (5-19); ASPARTATE AMINO TRANSFERASE 62 U/L (17-59); BILIRUBIN,DIRECT 0.3 mg/dL (0.0-0.4); BLOOD UREA NITROGEN 14 mg/dL (7-20); CALCIUM 9.9 mg/dL (8.4-10.2); CARBON DIOXIDE 24 mmol/L (22-30); CHLORIDE 108 mmol/L (98-107); GLUCOSE 107 mg/dL (75-110); POTASSIUM 4.7 mmol/L (3.6-5.0); TOTAL PROTEIN 8.2 g/dL (6.3-8.2)
--- NOTE | 2019-02-04 06:56 | RADIOLOGY REPORT (SQ) ---
EXAM: CT abdomen and pelvis with IV contrast CLINICAL DATA: 28-year-old male with right-sided abdominal pain TECHNICAL DATA: Axial CT imaging of the abdomen and pelvis was performed following the administration of intravenous contrast.. Sagittal and coronal reconstructed images were then performed. The CT study is performed according to ALARA (as low as reasonably achievable) or ALARA/IMAGE GENTLY, with automatic adjustment of mA and/or kV according to patient size. Performed on: 02/04/2019 at 6:14 AM. Comparison: CT abdomen and pelvis performed on 07/25/2017 FINDINGS: Lung bases: The lung bases are clear. Liver:The liver is normal in size and configuration. No focal hepatic abnormalities are identified. Liver attenuation is within normal limits. Spleen: The spleen is mildly enlarged and measures 13 cm in craniocaudal dimension. No focal splenic abnormalities are identified. Gallbladder and bile duct: The gallbladder is well distended and unremarkable. There is no biliary ductal dilatation. Pancreas: The pancreas is grossly normal in size and configuration. Adrenal Glands:The adrenal glands are normal in size and configuration. Kidneys: The kidneys are normal in size and position. There is scarring along the inferior lateral portion of the right kidney. There is no evidence of hydronephrosis. There is no evidence of nephrolithiasis. There is an approximately 1.1 cm cyst in the midpole of the left kidney. Stomach:The stomach is grossly normal. There is no definite hiatal hernia. Bowel:The bowel gas pattern is non specific and non obstructive. Appendix: The appendix is normal. Free air:There is no evidence of free air. Free fluid: There is no evidence of free fluid. Vasculature: The aorta is normal in caliber and contour. The inferior vena cava is grossly unremarkable. Lymphadenopathy: No pathologic lymphadenopathy is identified. Bladder: The bladder is well distended and smooth in contour. Reproductive: The prostate gland is grossly within normal limits. Bones: No acute osseous abnormalities are identified. There are mild degenerative changes of the lower thoracic spine. Soft tissues: No focal soft tissue abnormalities are identified. IMPRESSION: 1. No evidence of acute intra-abdominal or intrapelvic pathology. 2. Mild splenomegaly. 3. Scarring along the inferior lateral portion of the right kidney. 4. Other mild chronic findings as described above. There is no CT evidence to suggest acute appendicitis, urinary tract obstruction or gallbladder pathology.
[2019-02-04 07:18] VITALS: BP 133/84
== END 2019-02-04 07:16 | disposition home or self-care (01) ==
LOC: ER 21:20
DX: R10.84 Generalized abdominal pain (principal); R10.31 Right lower quadrant pain; Z88.3 Allergy status to other anti-infective agents
CPT/HCPCS: 36415; 85025; 80053; 81001; 74177; J7030; 96360; 99284

== ENCOUNTER 2019-03-05 04:39 | Emergency (ER) | payer SELFPAY ==
--- NOTE | 2019-03-05 04:43 | ER Document Report ---
ED GI/ - General Stated Complaint: ABDOMINAL PAIN Time Seen by Provider: 03/05/19 04:42 Primary Care Provider: RAS GURROLA MD [Primary Care Provider] - Follow up as needed Mode of Arrival: Ambulatory Information source: Patient Notes: HISTORY OF PRESENT ILLNESS: Patient is a 29-year-old male with a past medical history of chronic abdominal pain who presents with recurrent abdominal pain that awoke him from sleep shortly prior to arrival. Patient reports that he presented over a week ago for similar symptoms, blood work and CT scan at that time were negative for acute findings. Patient reports that he is "concerned as appendicitis," however CT scan from previous visit did not show any evidence of this. Location: Right lower quadrant Onset: Immediately prior to arrival Alleviation: None Provocation: Movement Quality: Aching, sharp Radiation: None Severity: Moderate Timing: Persistent History of abdominal surgery: None Associated symptoms: Denies nausea or vomiting, no fevers or chills, no diarrhea or constipation, no dark or bloody stools Last bowel movement: Yesterday and normal REVIEW OF SYSTEMS: CONSTITUTIONAL : Denies fever or chills, no sweats. Denies recent illness. EENT: Denies eye, ear, throat, or mouth pain or symptoms. Denies nasal or sinus congestion. CARDIOVASCULAR: Denies chest pain. Denies swelling of the legs. RESPIRATORY: Denies cough, cold, or chest congestion. Denies shortness of breath or difficulty breathing. Denies wheezing. GASTROINTESTINAL: Positive for abdominal pain. Denies nausea, vomiting, or diarrhea. Denies constipation. GENITOURINARY: Denies difficulty urinating, painful urination, burning, frequency, or blood in urine. FEMALE GENITOURINARY: Denies vaginal bleeding, abnormal or irregular periods. MUSCULOSKELETAL: Denies neck or back pain or joint pain or swelling. SKIN: Denies rash or skin lesions. HEMATOLOGIC : Denies easy bruising or bleeding. LYMPHATIC: Denies swollen, enlarged glands. NEUROLOGICAL: Denies altered mental status or loss of consciousness. Denies headache. Denies weakness or paralysis or loss of use of either side. Denies problems with gait or speech. Denies sensory or motor loss. PSYCHIATRIC: Denies anxiety or stress or depression. All other systems reviewed and negative. PHYSICAL EXAMINATION: GENERAL: Well-appearing, well-nourished and in no acute distress. HEAD: Atraumatic, normocephalic. No scalp deformity, depression, or crepitance. EYES: Pupils are 3 mm and equal/round/reactive to light, extraocular movements intact, sclera anicteric, conjunctiva are normal. ENT: Nares patent bilaterally, oropharynx. Moist mucous membranes. No tonsil hypertrophy. NECK: Normal range of motion, supple without lymphadenopathy. LUNGS: Breath sounds present, equal, and clear to auscultation bilaterally. No wheezes, rales, or rhonchi. HEART: Regular rate and rhythm without murmurs, rubs, or gallops. 2+ peripheral pulses. Normal capillary refill. ABDOMEN: Mild pain in the right lower quadrant without rigidity. Soft, nondistended. Normoactive bowel sounds. No guarding, no rebound. No masses appreciated. BACK: Normal contour, no midline tenderness. Rectal exam deferred. GENITAL/PELVIC: Deferred. EXTREMITIES: Normal range of motion, no pitting or edema. No cyanosis. NEUROLOGICAL: No focal neurological deficits. Moves all extremities spontaneously and on command. PSYCH: Normal mood, normal affect. No suicidal thoughts/ideations. No homicidal thoughts/ideations. No hallucinations. SKIN: Warm, dry, normal turgor, no rashes or lesions noted. ASSESSMENT AND PLAN: This patient is a 29-year-old male who presents with acute on chronic abdominal pain in the right lower quadrant. Review of medical records indicates patient was seen for identical symptoms on his last visit, work-up was negative. 1. Will obtain repeat blood work. 2. Will give IV Toradol and reassess. TRAVEL OUTSIDE OF THE [place] IN LAST 30 DAYS: No - HPI Patient complains to provider of: Abdominal pain Onset: Just prior to arrival Timing/Duration: Sudden Quality of pain: Achy, Cramping Severity at maximum: Severe Severity in ED: Moderate Pain Level: 2 Location: RLQ Sexual history: Inactive Associated symptoms: None Exacerbated by: Movement Relieved by: Denies Similar symptoms previously: Yes Recently seen / treated by doctor: Yes - Related Data Allergies/Adverse Reactions: cefaclor [From Ceclor] Allergy (Verified 07/28/17 03:58) sulfamethoxazole [From Bactrim] Allergy (Verified 07/28/17 03:58) tramadol [From Ultram] Allergy (Verified 07/28/17 03:58) trimethoprim [From Bactrim] Allergy (Verified 07/28/17 03:58) Past Medical History - General Information source: Patient - Social History Smoking Status: Unknown if Ever Smoked Chew tobacco use (# tins/day): No Frequency of alcohol use: None Drug Abuse: None Lives with: Alone Family History: Reviewed & Not Pertinent, Other - Migraine headaches Patient has suicidal ideation: No Patient has homicidal ideation: No - Past Medical History Cardiac Medical History: Reports: None Pulmonary Medical History: Reports: None EENT Medical History: Reports: None Neurological Medical History: Reports: Hx Migraine Endocrine Medical History: Reports: None Renal/ Medical History: Reports: None. Denies: Hx Peritoneal Dialysis Malignancy Medical History: Reports None GI Medical History: Reports: None Musculoskeletal Medical History: Reports None Skin Medical History: Reports None Psychiatric Medical History: Reports: None Traumatic Medical History: Reports: None Infectious Medical History: Reports: None Past Surgical History: Reports: Hx Tonsillectomy - and Adenoidectomy - Immunizations Immunizations up to date: Yes Review of Systems - Review of Systems Constitutional: No symptoms reported EENT: No symptoms reported Cardiovascular: No symptoms reported Respiratory: No symptoms reported Gastrointestinal: See HPI, Abdominal pain Genitourinary: No symptoms reported Male Genitourinary: No symptoms reported Musculoskeletal: No symptoms reported Skin: No symptoms reported Hematologic/Lymphatic: No symptoms reported Neurological/Psychological: No symptoms reported -: Yes All other systems reviewed and negative Physical Exam - Vital signs Vitals: Temp Pulse Resp BP 99.0 F 88 14 125/80 03/05/19 04:39 03/05/19 04:39 03/05/19 04:39 03/05/19 04:39 Interpretation: Normal Course - Re-evaluation Re-evalutation: 03/05/19 06:07 I have reviewed the patient's previous CT scan, there is no evidence of acute pathology. Repeat blood work is unchanged. Will discharge the patient home with strict return precautions and follow-up with primary care. All results were explained to and discussed with the patient, and all questions addressed and answered. The patient voices both understanding and agreeing with the plan. - Vital Signs Vital signs: Temp Pulse Resp BP Pulse Ox 99.0 F 88 14 118/69 98 03/05/19 04:39 03/05/19 04:39 03/05/19 05:54 03/05/19 05:54 03/05/19 05:54 - Laboratory Result Diagrams: 03/05/19 05:07 03/05/19 05:07 Laboratory results interpreted by me: 03/05/19 05:07 Carbon Dioxide 31 H Creatinine 1.28 H - Diagnostic Test Radiology reviewed: Image reviewed, Reports reviewed Discharge - Discharge Clinical Impression: Chronic abdominal pain Condition: Good Disposition: HOME, SELF-CARE Instructions: Abdominal Pain ([facility]) Additional Instructions: You have been evaluated in the Emergency Department for recurrent abdominal pain. While here, you had blood work that was normal and it is now safe to be discharged home. Please follow-up with your primary physician as instructed in one week to be rechecked. Return to the Emergency Department if you experience worsening pain, uncontrollable vomiting, high fevers, or any other concerning symptoms. Prescriptions: Ondansetron [Zofran Odt 4 mg Tablet] 1 tab PO Q8HP PRN #30 tab.rapdis PRN Reason: For Nausea/Vomiting Referrals: RAS GURROLA MD [Primary Care Provider] - Follow up as needed Print Language: Indian
[2019-03-05] MEDS ORDERED: KETOROLAC TROMETHAMINE INJ/PF 30 MG/1 ML SDV IV ONE (04:58)
[2019-03-05 05:25] LABS: ABSOLUTE BASOPHILS # (AUTO) 0.1 10^3/uL (0.0-0.2); ABSOLUTE EOSINOPHILS # (AUTO) 0.1 10^3/uL (0.0-0.6); ABSOLUTE LYMPHOCYTES (AUTO) 1.4 10^3/uL (0.5-4.7); ABSOLUTE MONOCYTES (AUTO) 0.5 10^3/uL (0.1-1.4); ABSOLUTE NEUT (AUTO) 4.6 10^3/uL (1.7-8.2); BASOPHILS % (AUTO) 0.9 % (0-2); EOSINOPHILS % (AUTO) 1.3 % (0-6); HEMATOCRIT 46.3 % (37.9-51.0); HEMOGLOBIN 16.3 g/dL (13.5-17.0); LYMPHOCYTES % (AUTO) 21.3 % (13-45); MEAN CORPUSCULAR HEMOGLOBIN 31.2 pg (27.0-33.4); MEAN CORPUSCULAR HGB CONC 35.1 g/dL (32.0-36.0); MEAN CORPUSCULAR VOLUME 89 fl (80-97); MONOCYTES % (AUTO) 7.8 % (3-13); PLATELET COUNT 254 10^3/uL (150-450); RED BLOOD COUNT 5.21 10^6/uL (4.35-5.55); RED CELL DISTRIBUTION WIDTH 13.7 % (11.5-14.0); SEGMENTED NEUTROPHILS % (AUTO) 68.7 % (42-78); TOTAL CELLS COUNTED % (AUTO) 100 %; WHITE BLOOD COUNT 6.6 10^3/uL (4.0-10.5)
[2019-03-05 05:32] LABS: APPEARANCE,URINE CLEAR; BILIRUBIN,URINE NEGATIVE (NEGATIVE); COLOR,URINE YELLOW; GLUCOSE, URINE NEGATIVE (NEGATIVE); KETONES,URINE NEGATIVE (NEGATIVE); LEUKOCYTE ESTERASE,URINE NEGATIVE (NEGATIVE); NITRITE,URINE NEGATIVE (NEGATIVE); PROTEIN,URINE NEGATIVE (NEGATIVE); URINE SPECIFIC GRAVITY 1.023; UROBILINOGEN,URINE NEGATIVE mg/dL (<2.0)
[2019-03-05 05:41] LABS: ALBUMIN 4.4 g/dL (3.5-5.0); ALKALINE PHOSPHATASE 77 U/L (38-126); ANION GAP 7 (5-19); ASPARTATE AMINO TRANSFERASE 54 U/L (17-59); BILIRUBIN,DIRECT 0.1 mg/dL (0.0-0.4); BILIRUBIN,TOTAL 0.4 mg/dL (0.2-1.3); BLOOD UREA NITROGEN 13 mg/dL (7-20); CALCIUM 9.2 mg/dL (8.4-10.2); CARBON DIOXIDE 31 mmol/L (22-30); CHLORIDE 104 mmol/L (98-107); GLUCOSE 109 mg/dL (75-110); POTASSIUM 4.2 mmol/L (3.6-5.0); TOTAL PROTEIN 7.2 g/dL (6.3-8.2)
[2019-03-05 05:56] LABS: URINE AMPHETAMINES SCREEN NEGATIVE; URINE BARBITURATES SCREEN NEGATIVE; URINE BENZODIAZEPINES SCREEN NEGATIVE; URINE COCAINE SCREEN NEGATIVE; URINE MARIJUANA (THC) SCREEN NEGATIVE; URINE METHADONE SCREEN NEGATIVE; URINE PHENCYCLIDINE SCREEN NEGATIVE
[2019-03-05 06:35] VITALS: BP 128/68
== END 2019-03-05 06:34 | disposition home or self-care (01) ==
LOC: ER 04:39
DX: G89.29 Other chronic pain (principal); R10.31 Right lower quadrant pain; Z88.3 Allergy status to other anti-infective agents
CPT/HCPCS: 36415; 83690; 85025; 80053; 81001; 80307; J1885; 96374; 99284

== ENCOUNTER 2019-03-17 05:29 | Emergency (ER) | payer SELFPAY ==
[2019-03-17] MEDS ORDERED: NORMAL SALINE 500 ML IV ONE (06:19)
[2019-03-17] MEDS ORDERED: FAMOTIDINE INJ/PF 20 MG/2 ML SDV IV ONE (06:20)
[2019-03-17] MEDS ORDERED: ONDANSETRON HCL INJ/PF 4 MG/2 ML SDV IV ONE (06:20)
--- NOTE | 2019-03-17 06:31 | ER Document Report ---
ED General - General Chief Complaint: Abdominal Pain Stated Complaint: ABDOMINAL PAIN,HEADACHE,VOMITING Time Seen by Provider: 03/17/19 06:09 Primary Care Provider: RAS GURROLA MD [Primary Care Provider] - Follow up as needed TRAVEL OUTSIDE OF THE [place] IN LAST 30 DAYS: No - HPI Notes: Patient is a 29-year-old male who presents emergency department for evaluation of abdominal pain. He states that his symptoms started about 4 hours ago, suddenly. He states he was at rest. He has had 2 episodes of nonbloody, nonbilious emesis. He has had a headache for about 2 weeks. He states that he gets headaches sometimes, this went to seems to be lasting longer. He had a normal bowel movement at about 9 PM last night. He denies any urinary symptoms. He states his been coughing for about a week as well. Cough has been intermittently productive. - Related Data Allergies/Adverse Reactions: cefaclor [From Ceclor] Allergy (Verified 07/28/17 03:58) sulfamethoxazole [From Bactrim] Allergy (Verified 07/28/17 03:58) tramadol [From Ultram] Allergy (Verified 07/28/17 03:58) trimethoprim [From Bactrim] Allergy (Verified 07/28/17 03:58) Past Medical History - General Information source: Patient - Social History Smoking Status: Never Smoker Frequency of alcohol use: None Drug Abuse: None Family History: Reviewed & Not Pertinent, COPD, DM, Other - Migraine headaches Patient has suicidal ideation: No Patient has homicidal ideation: No Neurological Medical History: Reports: Hx Migraine Renal/ Medical History: Denies: Hx Peritoneal Dialysis Malignancy Medical History: Reports Other - Patient states some sort of renal cancer, excision was curative Past Surgical History: Reports: Hx Tonsillectomy - and Adenoidectomy - Immunizations Immunizations up to date: Yes Review of Systems - Review of Systems Constitutional: No symptoms reported EENT: No symptoms reported Cardiovascular: No symptoms reported Respiratory: See HPI Gastrointestinal: See HPI Genitourinary: No symptoms reported Male Genitourinary: No symptoms reported Musculoskeletal: No symptoms reported Skin: No symptoms reported Neurological/Psychological: No symptoms reported Physical Exam - Vital signs Vitals: Temp Pulse Resp BP Pulse Ox 98.2 F 80 18 137/92 H 96 03/17/19 05:41 03/17/19 05:41 03/17/19 05:41 03/17/19 05:41 03/17/19 05:41 - Notes Notes: Vital signs reviewed, please refer to chart. Head is normocephalic, atraumatic. Pupils equal round, reactive to light. Neck is supple without meningismus. Heart is regular rate and rhythm. Lungs are clear to auscultation bilaterally. Abdomen is soft, minimally tender in the epigastric and right upper quadrant without rebound or guarding, normoactive bowel sounds throughout. Extremities without cyanosis, clubbing. Posterior calves are nontender. Peripheral pulses are equal. Skin is warm and dry. Patient is awake, alert, neurological exam is nonfocal. Course - Re-evaluation Re-evalutation: 03/17/19 07:59 Patient presents emergency department for evaluation of abdominal pain, nausea and vomiting. His symptoms only began a few hours ago. His vital signs are unremarkable. Laboratory investigations failed to reveal any significant abnormality. Patient is feeling significantly improved here after medication. Serial abdominal exams are entirely benign. At this point I will send him home with some Zofran. He is to follow-up with primary care. He is to return to the ED with worsening or new concerning symptoms of any sort. - Vital Signs Vital signs: Temp Pulse Resp BP Pulse Ox 98.1 F 81 18 130/89 H 97 03/17/19 08:50 03/17/19 08:50 03/17/19 08:50 03/17/19 08:50 03/17/19 08:50 - Laboratory Result Diagrams: 03/17/19 05:57 03/17/19 05:57 Laboratory results interpreted by me: 03/17/19 03/17/19 05:57 05:57 RDW 14.1 H AST 60 H Discharge - Discharge Clinical Impression: Upper abdominal pain, Nausea and vomiting Condition: Stable Disposition: HOME, SELF-CARE Instructions: Abdominal Pain ([facility]), Antinausea Medication ([facility]), Vomiting ([facility]) Additional Instructions: Clear liquids at first only, advance slowly to a very bland diet. Stay hydrated with small, frequent sips of fluids. Zofran as needed for nausea, Tylenol as needed for pain. If you develop worsening or new concerning symptoms of any sort, return immediately to the emergency department for reevaluation. Referrals: RAS GURROLA MD [Primary Care Provider] - Follow up as needed
[2019-03-17 06:41] LABS: ABSOLUTE BASOPHILS # (AUTO) 0.1 10^3/uL (0.0-0.2); ABSOLUTE EOSINOPHILS # (AUTO) 0.1 10^3/uL (0.0-0.6); ABSOLUTE LYMPHOCYTES (AUTO) 1.4 10^3/uL (0.5-4.7); ABSOLUTE MONOCYTES (AUTO) 0.5 10^3/uL (0.1-1.4); ABSOLUTE NEUT (AUTO) 4.4 10^3/uL (1.7-8.2); BASOPHILS % (AUTO) 0.8 % (0-2); EOSINOPHILS % (AUTO) 1.4 % (0-6); HEMATOCRIT 48.7 % (37.9-51.0); HEMOGLOBIN 16.9 g/dL (13.5-17.0); LYMPHOCYTES % (AUTO) 22.4 % (13-45); MEAN CORPUSCULAR HEMOGLOBIN 31.2 pg (27.0-33.4); MEAN CORPUSCULAR HGB CONC 34.6 g/dL (32.0-36.0); MEAN CORPUSCULAR VOLUME 90 fl (80-97); MONOCYTES % (AUTO) 7.3 % (3-13); PLATELET COUNT 257 10^3/uL (150-450); RED BLOOD COUNT 5.41 10^6/uL (4.35-5.55); RED CELL DISTRIBUTION WIDTH 14.1 % (11.5-14.0); SEGMENTED NEUTROPHILS % (AUTO) 68.1 % (42-78); TOTAL CELLS COUNTED % (AUTO) 100 %; WHITE BLOOD COUNT 6.4 10^3/uL (4.0-10.5)
[2019-03-17 06:48] LABS: ALBUMIN 4.4 g/dL (3.5-5.0); ALKALINE PHOSPHATASE 71 U/L (38-126); ANION GAP 8 (5-19); ASPARTATE AMINO TRANSFERASE 60 U/L (17-59); BILIRUBIN,DIRECT 0.2 mg/dL (0.0-0.4); BILIRUBIN,TOTAL 0.6 mg/dL (0.2-1.3); BLOOD UREA NITROGEN 12 mg/dL (7-20); CALCIUM 9.5 mg/dL (8.4-10.2); CARBON DIOXIDE 30 mmol/L (22-30); CHLORIDE 103 mmol/L (98-107); GLUCOSE 101 mg/dL (75-110); POTASSIUM 4.2 mmol/L (3.6-5.0); TOTAL PROTEIN 7.4 g/dL (6.3-8.2)
[2019-03-17 07:32] LABS: APPEARANCE,URINE CLEAR; BILIRUBIN,URINE NEGATIVE (NEGATIVE); COLOR,URINE YELLOW; GLUCOSE, URINE NEGATIVE (NEGATIVE); KETONES,URINE NEGATIVE (NEGATIVE); LEUKOCYTE ESTERASE,URINE NEGATIVE (NEGATIVE); NITRITE,URINE NEGATIVE (NEGATIVE); PROTEIN,URINE NEGATIVE (NEGATIVE); URINE SPECIFIC GRAVITY 1.016; UROBILINOGEN,URINE NEGATIVE mg/dL (<2.0)
[2019-03-17] MEDS ORDERED: ONDANSETRON ODT 4 MG TAB (6 TAB/ER DISP) PO PRN (07:59)
[2019-03-17 08:57] VITALS: BP 130/89
== END 2019-03-17 08:50 | disposition home or self-care (01) ==
LOC: ER 05:29
DX: R10.10 Upper abdominal pain, unspecified (principal); R11.2 Nausea with vomiting, unspecified; R51 Headache; Z88.3 Allergy status to other anti-infective agents
CPT/HCPCS: 99284; 96361; 96374; 96375; 36415; 83690; 85025; 80053; 81001; J2405; J7040; S0028

== ENCOUNTER 2019-12-13 18:12 | Emergency (ER) | payer SELFPAY ==
[2019-12-13 18:28] VITALS: BP 115/77
[2019-12-13] MEDS ORDERED: CYCLOBENZAPRINE HCL 10 MG TABLET PO ONE (19:51)
--- NOTE | 2019-12-13 19:53 | ER Document Report ---
HPI - HPI Time Seen by Provider: 12/13/19 19:42 Pain Level: 3 Context: Patient is a 27-year-old male who presents the emergency department with a chief complaint of right hip pain. Patient states that he was mowing the lawn and he went to go sit down to take a break. He went to go to stand up, he ended up having right hip pain that radiated down his right leg. States he is able to walk. He has never had this before. He does not take any medications to help with the pain. Denies any bladder or bowel dysfunction. Denies any numbness or tingling. - ROS Systems Reviewed and Negative: Yes All other systems reviewed and negative - CONSTITUTIONAL Constitutional: DENIES: Fever, Chills - EENT EENT: DENIES: Sore Throat, Ear Pain, Eye problems - NEURO Neurology: DENIES: Headache, Weakness, Vision blurred, Dizzinesss / Vertigo - CARDIOVASCULAR Cardiovascular: DENIES: Chest pain - RESPIRATORY Respiratory: DENIES: Trouble Breathing, Coughing - GASTROINTESTINAL Gastrointestinal: DENIES: Abdominal Pain, Black / Bloody Stools - URINARY Urinary: DENIES: Dysuria, Urgency, Frequency - MUSCULOSKELETAL Musculoskeletal: REPORTS: Extremity pain - right hip - DERM Skin Color: Normal Skin Problems: None Past Medical History - Social History Smoking Status: Never Smoker Chew tobacco use (# tins/day): No Frequency of alcohol use: None Drug Abuse: None Family History: Reviewed & Not Pertinent, COPD, DM, Other - Migraine headaches Neurological Medical History: Reports: Hx Migraine Renal/ Medical History: Denies: Hx Peritoneal Dialysis Past Surgical History: Reports: Hx Tonsillectomy - and Adenoidectomy - Immunizations Immunizations up to date: Yes Vertical Provider Document - CONSTITUTIONAL Agree With Documented VS: Yes Exam Limitations: No Limitations General Appearance: No Apparent Distress - INFECTION CONTROL TRAVEL OUTSIDE OF THE [place] IN LAST 30 DAYS: No - HEENT HEENT: Atraumatic, Normocephalic, PERRLA - NECK Neck: Normal Inspection - RESPIRATORY Respiratory: No Respiratory Distress - CARDIOVASCULAR Cardiovascular: Regular Rate Pulses: Normal: Radial - MUSCULOSKELETAL/EXTREMETIES Musculoskeletal/Extremeties: FROM, Tender - Right hip joint - NEURO Level of Consciousness: Awake, Alert, Appropriate Motor/Sensory: No Motor Deficit, No Sensory Deficit - DERM Integumentary: Warm, Dry, No Rash Course - Re-evaluation Re-evalutation: 12/15/19 Differential diagnosis for back pain includes muscle spasm, muscle strain, slipped disc cauda equina syndrome, vertebral fracture, vertebral tumor, epidural abscess, pyelonephritis, or AAA. Based on history and exam, the most likely etiology of the patient's hip pain is sciatic nerve pain. Emergent MRI is not indicated at this time because the patient does not have new weakness, or cauda equina syndrome. Patient does not have bladder or bowel dysfunction. Patient does not have history of IV drug use, therefore, I do not suspect an epidural abscess. Patient does not have recent weight loss or night sweats, and does not have a known history of cancer. We will start the patient on Flexeril. Patient will follow-up with his primary care provider. Suggested physical therapy. Follow-up precautions were given. Verbal discharge instructions were given to the patient. They verbalized understanding. They are stable for discharge. - Vital Signs Vital signs: Temp Pulse Resp BP Pulse Ox 98.8 F 95 18 115/77 95 12/13/19 18:25 12/13/19 18:25 12/13/19 18:25 12/13/19 18:25 12/13/19 18:25 Discharge - Discharge Clinical Impression: Right hip pain Sciatica Qualifiers: Laterality: right Qualified Code(s): M54.31 - Sciatica, right side Condition: Stable Disposition: HOME, SELF-CARE Additional Instructions: You were seen today in the emergency department for right hip pain. I recommend that you follow-up with your primary care provider and get physical therapy. Take Flexeril as needed. You can also take your naproxen as needed for pain. You can also take Tylenol 1000 mg every 6 hours as needed for your pain. Prescriptions: Cyclobenzaprine HCl [Flexeril 10 mg Tablet] 10 mg PO TIDP PRN #15 tab PRN Reason: Referrals: RAS GURROLA MD [Primary Care Provider] - Follow up in 3-5 days
== END 2019-12-13 19:55 | disposition home or self-care (01) ==
LOC: ER 18:12
DX: M54.31 Sciatica, right side (principal); M25.551 Pain in right hip
CPT/HCPCS: 99283

== ENCOUNTER 2019-12-30 17:20 | Emergency (ER) | payer SELFPAY ==
--- NOTE | 2019-12-30 17:41 | ER Document Report ---
ED Medical Screen (RME) - General Chief Complaint: Chest Pain Stated Complaint: CHEST PAIN/RIGHTS SIDE RIB PAIN Time Seen by Provider: 12/30/19 17:37 Primary Care Provider: RAS GURROLA MD [Primary Care Provider] - Follow up as needed Mode of Arrival: Ambulatory Information source: Patient Notes: 29-year-old male presented to ED for complaint of left-sided chest pain. 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 He states this chest pain just started couple hours ago. He is alert oriented respirations regular nonlabored speaking in full sentences. We will get a chest pain work-up completed and patient will be seen by another provider. I have greeted and performed a rapid initial assessment of this patient. A comprehensive ED assessment and evaluation of the patient, analysis of test results and completion of medical decision making process will be conducted by an additional ED providers. TRAVEL OUTSIDE OF THE [place] IN LAST 30 DAYS: No - Related Data Allergies/Adverse Reactions: cefaclor [From Ceclor] Allergy (Verified 07/28/17 03:58) sulfamethoxazole [From Bactrim] Allergy (Verified 07/28/17 03:58) tramadol [From Ultram] Allergy (Verified 07/28/17 03:58) trimethoprim [From Bactrim] Allergy (Verified 07/28/17 03:58) Past Medical History Neurological Medical History: Reports: Hx Migraine Renal/ Medical History: Denies: Hx Peritoneal Dialysis Past Surgical History: Reports: Hx Tonsillectomy - and Adenoidectomy - Immunizations Immunizations up to date: Yes Physical Exam - Vital signs Vitals: Temp Pulse Resp BP Pulse Ox 98.8 F 88 20 152/106 H 97 12/30/19 17:33 12/30/19 17:33 12/30/19 17:33 12/30/19 17:33 12/30/19 17:33 Course - Vital Signs Vital signs: Temp Pulse Resp BP Pulse Ox 98.8 F 88 20 152/106 H 97 12/30/19 17:33 12/30/19 17:33 12/30/19 17:33 12/30/19 17:33 12/30/19 17:33 Doctor's Discharge - Discharge Referrals: RAS GURROLA MD [Primary Care Provider] - Follow up as needed
[2019-12-30 17:53] LABS: ABSOLUTE BASOPHILS # (AUTO) 0.1 10^3/uL (0.0-0.2); ABSOLUTE LYMPHOCYTES (AUTO) 1.2 10^3/uL (0.5-4.7); ABSOLUTE MONOCYTES (AUTO) 0.4 10^3/uL (0.1-1.4); ABSOLUTE NEUT (AUTO) 5.4 10^3/uL (1.7-8.2); BASOPHILS % (AUTO) 0.8 % (0-2); EOSINOPHILS % (AUTO) 0.6 % (0-6); HEMATOCRIT 47.3 % (37.9-51.0); HEMOGLOBIN 16.5 g/dL (13.5-17.0); LYMPHOCYTES % (AUTO) 16.4 % (13-45); MEAN CORPUSCULAR HEMOGLOBIN 31.6 pg (27.0-33.4); MEAN CORPUSCULAR VOLUME 90 fl (80-97); MONOCYTES % (AUTO) 6.3 % (3-13); PLATELET COUNT 282 10^3/uL (150-450); RED BLOOD COUNT 5.22 10^6/uL (4.35-5.55); RED CELL DISTRIBUTION WIDTH 13.7 % (11.5-14.0); SEGMENTED NEUTROPHILS % (AUTO) 75.9 % (42-78); TOTAL CELLS COUNTED % (AUTO) 100 %; WHITE BLOOD COUNT 7.2 10^3/uL (4.0-10.5)
--- NOTE | 2019-12-30 18:16 | RADIOLOGY REPORT (SQ) ---
EXAM DESCRIPTION: CHEST 2 VIEWS IMAGES COMPLETED DATE/TIME: 12/30/2019 5:56 pm REASON FOR STUDY: chest pain COMPARISON: None. EXAM PARAMETERS: NUMBER OF VIEWS: two views TECHNIQUE: Digital Frontal and Lateral radiographic views of the chest acquired. RADIATION DOSE: NA LIMITATIONS: none FINDINGS: LUNGS AND PLEURA: No opacities, masses or pneumothorax. No pleural effusion. MEDIASTINUM AND HILAR STRUCTURES: No masses or contour abnormalities. HEART AND VASCULAR STRUCTURES: Heart normal size. No evidence for failure. BONES: No acute findings. HARDWARE: None in the chest. OTHER: No other significant finding. IMPRESSION: 1. NO ACUTE RADIOGRAPHIC FINDING IN THE CHEST. TECHNICAL DOCUMENTATION: JOB ID: [id number] 2010 [employer] [place] - 2- All Rights Reserved Reading location - IP/workstation name: [email or web address]
[2019-12-30 19:18] LABS: ALBUMIN 4.6 g/dL (3.5-5.0); ALKALINE PHOSPHATASE 77 U/L (38-126); ANION GAP 6 (5-19); ASPARTATE AMINO TRANSFERASE 52 U/L (17-59); BILIRUBIN,TOTAL 0.5 mg/dL (0.2-1.3); BLOOD UREA NITROGEN 10 mg/dL (7-20); CALCIUM 9.4 mg/dL (8.4-10.2); CARBON DIOXIDE 27 mmol/L (22-30); CHLORIDE 106 mmol/L (98-107); CREATINE KINASE 82 U/L (55-170); GLUCOSE 104 mg/dL (75-110); POTASSIUM 4.1 mmol/L (3.6-5.0); TOTAL PROTEIN 7.5 g/dL (6.3-8.2)
--- NOTE | 2019-12-30 21:50 | EKG REPORT ---
SEVERITY:- NORMAL ECG - SINUS RHYTHM : Confirmed by: Zechariah Austin MD 30-Dec-2019 21:49:35
--- NOTE | 2019-12-31 01:51 | ER Document Report ---
ED General - General Chief Complaint: Chest Wall Pain Stated Complaint: CHEST PAIN/RIGHTS SIDE RIB PAIN Time Seen by Provider: 12/30/19 17:37 Primary Care Provider: RAS GURROLA MD [Primary Care Provider] - Follow up as needed Mode of Arrival: Ambulatory Notes: 29-year-old male presents emergency department complaining of left-sided chest pain that onset while lying in bed watching TV around 2 PM this afternoon, states that it worsened when he stood up and radiated to his left lower ribs as well. States the pain in his left lower ribs was sharp and stabbing the pain on his chest was more like a cat was sitting on his chest. Patient states that has not improved while resting in the emergency department. Patient states he has had similar symptoms twice in the past that were attributed to a pulled muscle however he states that today's symptoms are different because they are worse and he feels like the chest pressure is new compared to the rib pain. Denies any cough, denies any fevers, denies any diaphoresis. Patient states that his mother from a heart attack when she was 46 or 47. TRAVEL OUTSIDE OF THE [place] IN LAST 30 DAYS: No - Related Data Allergies/Adverse Reactions: cefaclor [From Ceclor] Allergy (Verified 07/28/17 03:58) sulfamethoxazole [From Bactrim] Allergy (Verified 07/28/17 03:58) tramadol [From Ultram] Allergy (Verified 07/28/17 03:58) trimethoprim [From Bactrim] Allergy (Verified 07/28/17 03:58) Home Medications: Tylenol, Ibuprofen or Naproxen Past Medical History - General Information source: Patient - Social History Smoking Status: Never Smoker Chew tobacco use (# tins/day): No Frequency of alcohol use: None - Quit drinking 4 years ago. Drug Abuse: None Family History: CAD - Mother from a heart attack at approximately 46 years of age., COPD, DM, Other - Migraine headaches Neurological Medical History: Reports: Hx Migraine Renal/ Medical History: Denies: Hx Peritoneal Dialysis Past Surgical History: Reports: Hx Kidney (Renal Surgery) - R sided tumor resected, Hx Tonsillectomy - and Adenoidectomy - Immunizations Immunizations up to date: Yes Review of Systems - Review of Systems Constitutional: No symptoms reported EENT: No symptoms reported Cardiovascular: See HPI Respiratory: See HPI Gastrointestinal: No symptoms reported -: Yes All other systems reviewed and negative Physical Exam - Vital signs Vitals: Temp Pulse Resp BP Pulse Ox 98.8 F 88 20 152/106 H 97 12/30/19 17:33 12/30/19 17:33 12/30/19 17:33 12/30/19 17:33 12/30/19 17:33 Interpretation: Hypertensive - Notes Notes: GENERAL: Alert, interacts well. No acute distress. HEAD: Normocephalic, atraumatic EYES: Pupils equal, round and reactive to light, extraocular movements intact. ENT: Oral mucosa moist, tongue midline. NECK: Full range of motion, supple, trachea midline. LUNGS: Clear to auscultation bilaterally, no wheezes, rales or rhonchi, no respiratory distress. Tenderness to palpation mid axillary line from nipple line to very bottom of the rib cage. No rash, this does reproduce the pain. Also has some sternal tenderness to palpation. HEART: Regular rate and rhythm, no murmurs, gallops, rubs. ABDOMEN: Soft, nontender, nondistended, bowel sounds present in all 4 quadrants. EXTREMITIES: Moves all 4 extremities spontaneously, no edema, radial and dorsalis pedis pulses 2/4 bilaterally. No cyanosis. NEUROLOGICAL: Alert and oriented x3, normal speech. PSYCH: Normal mood, normal affect. SKIN: Warm, Dry, normal turgor. Course - Re-evaluation Re-evalutation: 12/31/19 02:51 CBC unremarkable, CMP shows normal troponin x2. Chest x-ray unremarkable. EKG is nonischemic. Discussed with patient that there is no evidence of ischemic coronary artery disease today. I am reassured by the fact that the pain is reproducible. It is also not worsened by exertion. Recommended that patient try muscle relaxers for possible intercostal muscle spasm but also to follow-up with cardiology as an outpatient as patient's mother from heart attack at 46 or 47 years old without any major reported risk factors. Patient also has had recurrent chest pain over the past 2 years and may benefit from having a stress test to further investigate the cause of this chest pain. Patient will be discharged home. - Vital Signs Vital signs: Temp Pulse Resp BP Pulse Ox 98.7 F 98 17 126/72 H 98 12/31/19 00:11 12/30/19 23:25 12/31/19 01:01 12/31/19 01:01 12/31/19 01:01 - Laboratory Result Diagrams: 12/30/19 17:30 12/30/19 17:30 Laboratory results interpreted by me: 12/30/19 17:30 ALT 90 H - EKG Interpretation by Me Additional EKG results interpreted by me: 12/31/19 01:51 EKG shows sinus rhythm at a rate of 93, left axis deviation, normal intervals, no ST segment elevations or depressions, T wave flattening in lead III, poor R wave progression per my interpretation. Discharge - Discharge Clinical Impression: Left-sided chest wall pain Condition: Stable Disposition: HOME, SELF-CARE Additional Instructions: Tonight I did not find any signs of a heart attack. You have been having intermittent left-sided chest pain for over a year. Again tonight we did not find any signs of a heart attack however as you continue to have this pain I think it would be a good idea for you to follow-up with a keyboard specialist. They can discuss with you any further testing that she might need to look at your risks for having a heart attack including possible stress testing. I am concerned by your increased risk due to your weight, your elevated blood pressure and your mother's in her 40s from a heart attack. Tonight I do think your chest pain is probably coming from a muscle spasm between your ribs. I would like you to stretch, take deep breaths and use the Flexeril as directed. Please return for worsening pain, fevers or any difficulty breathing or any new or concerning symptoms. Prescriptions: Cyclobenzaprine HCl [Flexeril 10 mg Tablet] 10 mg PO TIDP PRN #15 tab PRN Reason: Referrals: RAS GURROLA MD [Primary Care Provider] - Follow up as needed TERESA BOOTH MD [ACTIVE STAFF] - Follow up as needed
[2019-12-31 03:24] VITALS: BP 127/85
== END 2019-12-31 03:25 | disposition home or self-care (01) ==
LOC: ER 17:20
DX: R07.89 Other chest pain (principal); R07.81 Pleurodynia; Z79.899 Other long term (current) drug therapy; Z82.49 Family history of ischemic heart disease and other diseases of the circulatory system; Z88.1 Allergy status to other antibiotic agents; Z88.6 Allergy status to analgesic agent
CPT/HCPCS: 36415; 71046; 80053; 82550; 84484; 85025; 93005; 93010; 99285

== ENCOUNTER 2020-01-07 00:44 | Emergency (ER) | payer SELFPAY ==
[2020-01-07 02:13] LABS: ABSOLUTE BASOPHILS # (AUTO) 0.1 10^3/uL (0.0-0.2); ABSOLUTE LYMPHOCYTES (AUTO) 1.1 10^3/uL (0.5-4.7); ABSOLUTE MONOCYTES (AUTO) 0.5 10^3/uL (0.1-1.4); ABSOLUTE NEUT (AUTO) 8.2 10^3/uL (1.7-8.2); BASOPHILS % (AUTO) 0.6 % (0-2); EOSINOPHILS % (AUTO) 0.3 % (0-6); HEMATOCRIT 49.9 % (37.9-51.0); HEMOGLOBIN 17.6 g/dL (13.5-17.0); LYMPHOCYTES % (AUTO) 11.3 % (13-45); MEAN CORPUSCULAR HEMOGLOBIN 31.8 pg (27.0-33.4); MEAN CORPUSCULAR HGB CONC 35.3 g/dL (32.0-36.0); MEAN CORPUSCULAR VOLUME 90 fl (80-97); MONOCYTES % (AUTO) 4.9 % (3-13); PLATELET COUNT 276 10^3/uL (150-450); RED BLOOD COUNT 5.53 10^6/uL (4.35-5.55); RED CELL DISTRIBUTION WIDTH 14.1 % (11.5-14.0); SEGMENTED NEUTROPHILS % (AUTO) 82.9 % (42-78); TOTAL CELLS COUNTED % (AUTO) 100 %; WHITE BLOOD COUNT 9.9 10^3/uL (4.0-10.5)
[2020-01-07 02:28] LABS: ALBUMIN 4.8 g/dL (3.5-5.0); ALKALINE PHOSPHATASE 90 U/L (38-126); ANION GAP 7 (5-19); ASPARTATE AMINO TRANSFERASE 58 U/L (17-59); BILIRUBIN,TOTAL 0.6 mg/dL (0.2-1.3); BLOOD UREA NITROGEN 9 mg/dL (7-20); CALCIUM 9.8 mg/dL (8.4-10.2); CARBON DIOXIDE 28 mmol/L (22-30); CHLORIDE 105 mmol/L (98-107); GLUCOSE 99 mg/dL (75-110); POTASSIUM 4.6 mmol/L (3.6-5.0)
[2020-01-07 02:42] LABS: APPEARANCE,URINE CLEAR; BILIRUBIN,URINE NEGATIVE (NEGATIVE); COLOR,URINE YELLOW; GLUCOSE, URINE NEGATIVE (NEGATIVE); KETONES,URINE NEGATIVE (NEGATIVE); LEUKOCYTE ESTERASE,URINE NEGATIVE (NEGATIVE); NITRITE,URINE NEGATIVE (NEGATIVE); PROTEIN,URINE NEGATIVE (NEGATIVE); URINE SPECIFIC GRAVITY 1.017; UROBILINOGEN,URINE NEGATIVE mg/dL (<2.0)
[2020-01-07] MEDS ORDERED: ONDANSETRON HCL INJ/PF 4 MG/2 ML SDV IV ONE (04:32)
[2020-01-07] MEDS ORDERED: NORMAL SALINE 1000 ML 1,000 ML IV ONE (04:32)
[2020-01-07] MEDS ORDERED: FENTANYL CITRATE INJ/PF 100 MCG/2 ML AMPUL IV ONE (04:32)
--- NOTE | 2020-01-07 05:49 | ER Document Report ---
Entered by SUSANA VINCENT SCRIBE 01/07/20 0459 Acting as scribe for:JARETH WELSH DO ED GI/ - General Chief Complaint: Abdominal Pain Stated Complaint: ABDOMINAL PAIN Time Seen by Provider: 01/07/20 04:32 Primary Care Provider: RAS GURROLA MD [Primary Care Provider] - Follow up as needed Mode of Arrival: Ambulatory Information source: Patient Notes: This 29 year old male patient presents to the emergency department today with complaints of a "popping" sensation with pain to his right lower quadrant while he was having a bowel movement. Patient states he "just wants to be sure it isn't his appendix this time", indicating that he has "thought his appendix ruptured multiple times". Patient also states he has been "burping all afternoon and it tasted like rotten eggs". Patient denies nausea, vomiting, or diarrhea. TRAVEL OUTSIDE OF THE [place] IN LAST 30 DAYS: No - Related Data Allergies/Adverse Reactions: cefaclor [From Ceclor] Allergy (Verified 01/07/20 01:11) sulfamethoxazole [From Bactrim] Allergy (Verified 01/07/20 01:11) tramadol [From Ultram] Allergy (Verified 01/07/20 01:11) trimethoprim [From Bactrim] Allergy (Verified 01/07/20 01:11) Past Medical History - General Information source: Patient - Social History Smoking Status: Never Smoker Cigarette use (# per day): No Frequency of alcohol use: None Drug Abuse: None Lives with: Family Family History: Reviewed & Not Pertinent, CAD - Mother from a heart attack at approximately 46 years of age., COPD, DM, Other - Migraine headaches Patient has homicidal ideation: No Neurological Medical History: Reports: Hx Migraine Past Surgical History: Reports: Hx Adenoidectomy, Hx Kidney (Renal Surgery) - R sided tumor resected, Hx Tonsillectomy - Immunizations Immunizations up to date: Yes Review of Systems - Review of Systems Constitutional: denies: Fever EENT: No symptoms reported Cardiovascular: No symptoms reported Respiratory: No symptoms reported Gastrointestinal: See HPI, Abdominal pain. denies: Diarrhea, Nausea, Vomiting Genitourinary: No symptoms reported Male Genitourinary: No symptoms reported Musculoskeletal: No symptoms reported Skin: No symptoms reported Hematologic/Lymphatic: No symptoms reported Neurological/Psychological: No symptoms reported -: Yes All other systems reviewed and negative Physical Exam - Vital signs Vitals: Temp Pulse Resp BP Pulse Ox 99.0 F 94 18 129/87 H 99 01/07/20 00:57 01/07/20 00:57 01/07/20 00:57 01/07/20 00:57 01/07/20 00:57 Interpretation: Normal - General General appearance: Appears well, Alert - HEENT Head: Normocephalic, Atraumatic Eyes: Normal Pupils: PERRL - Respiratory Respiratory status: No respiratory distress Chest status: Nontender Breath sounds: Normal Chest palpation: Normal - Cardiovascular Rhythm: Regular Heart sounds: Normal auscultation Murmur: No - Abdominal Inspection: Normal Distension: No distension Bowel sounds: Normal Tenderness: Tender - Right lower quadrant Organomegaly: No organomegaly - Back Back: Normal, Nontender - Extremities General upper extremity: Normal inspection, Nontender, Normal color, Normal ROM, Normal temperature General lower extremity: Normal inspection, Nontender, Normal color, Normal ROM, Normal temperature, Normal weight bearing. No: Asad's sign - Neurological Neuro grossly intact: Yes Cognition: Normal Orientation: AAOx4 Gustavo Coma Scale Eye Opening: Spontaneous Gustavo Coma Scale Verbal: Oriented [place] Coma Scale Motor: Obeys Commands Gustavo Coma Scale Total: 15 Speech: Normal Motor strength normal: LUE, RUE, LLE, RLE Sensory: Normal - Psychological Associated symptoms: Normal affect, Normal mood - Skin Skin Temperature: Warm Skin Moisture: Dry Skin Color: Normal Course - Re-evaluation Re-evalutation: 01/07/20 05:47 Patient is a 29-year-old male who comes in complaining of right lower quadrant pain and burping today. Denies nausea or vomiting. 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 No other surgical history. Blood work benign. Urine with no blood or concern for infection. CT abdomen pelvis has been ordered. Care will be transitioned to the oncoming daytime physician. - Vital Signs Vital signs: Temp Pulse Resp BP Pulse Ox 99.0 F 94 18 129/87 H 99 01/07/20 00:57 01/07/20 00:57 01/07/20 00:57 01/07/20 00:57 01/07/20 00:57 - Laboratory Result Diagrams: 01/07/20 02:00 01/07/20 02:00 Laboratory results interpreted by me: 01/07/20 01/07/20 02:00 02:00 Hgb 17.6 H RDW 14.1 H Lymph % (Auto) 11.3 L Seg Neutrophils % 82.9 H ALT 107 H Discharge - Discharge Clinical Impression: RLQ abdominal pain Condition: Stable Disposition: OTHER Referrals: RAS GURROLA MD [Primary Care Provider] - Follow up as needed I personally performed the services described in the documentation, reviewed and edited the documentation which was dictated to the scribe in my presence, and it accurately records my words and actions.
--- NOTE | 2020-01-07 07:15 | RADIOLOGY REPORT (SQ) ---
EXAM DESCRIPTION: CT ABDOMEN PELVIS WITH IV CONTRAST COMPLETED DATE/TME: 01/07/2020 00:00 CLINICAL HISTORY: RLQ pain AFTER BM. FELT "POP" IN RLQ DURING BM. CREAT 1.02 COMPARISON: 02/04/2019 TECHNIQUE: CT of the abdomen and pelvis performed following IV administration of 100 mL Omnipaque 350. Oral contrast administered. FINDINGS: Lung Bases: The visualized lung bases are clear. Bones: No destructive bone lesions identified. Abdomen: Liver: The liver has normal size and density. No intrahepatic biliary dilatation. Gallbladder: No calcified gallstones. Spleen, Pancreas, and Adrenal Glands: The spleen, pancreas, and adrenal glands are unremarkable. Kidneys: No hydronephrosis or obstructing calculus. Right inferior pole renal cortical scarring. Small left renal cyst. Vasculature: The aorta and IVC have normal caliber and position. The portal vein is patent. The proximal visceral and renal arteries are patent. Stomach: The stomach and duodenum have normal course. Other: No free intraperitoneal air. No free fluid or lymphadenopathy. No abnormalities of the anterior abdominal wall. Pelvis: Bladder: Urinary bladder is unremarkable. Bowel: No dilated loops of large or small bowel. Appendix: Normal appendix. Pelvis: Prostate is not enlarged. IMPRESSION: 1. No acute inflammatory or obstructive process identified. This exam was performed according to our departmental dose-optimization program, which includes automated exposure control, adjustment of the mA and/or kV according to patient size and/or use of iterative reconstruction technique.
[2020-01-07 08:39] VITALS: BP 124/78
== END 2020-01-07 08:54 | disposition home or self-care (01) ==
LOC: ER 00:44
DX: R10.31 Right lower quadrant pain (principal)
CPT/HCPCS: 99284; 36415; 83690; 85025; 80053; 81001; 74177; J3010; J2405; J7030

== ENCOUNTER 2020-05-06 16:27 | Emergency (ER) | payer BC ==
--- NOTE | 2020-05-06 16:44 | ER Document Report ---
ED Medical Screen (RME) - General Chief Complaint: Abdominal Pain Stated Complaint: ABDOMINAL PAIN Time Seen by Provider: 05/06/20 16:32 Primary Care Provider: RAS GURROLA MD [Primary Care Provider] - Follow up as needed Information source: Patient Notes: She presents complaining of right lower quadrant abdominal pain that started around 3:00. Patient denies any nausea vomiting or fever. Last bowel movement was today. Patient states that he had a CT scan performed earlier today to evaluate his cyst on his left kidney. Patient states he has been told he has adhesions. Patient states he has had a previous right kidney tumor removed. I have greeted and performed a rapid initial assessment of this patient. A comprehensive ED assessment and evaluation of the patient, analysis of test results and completion of the medical decision making process will be conducted by additional ED providers. TRAVEL OUTSIDE OF THE [place] IN LAST 30 DAYS: No - Related Data Allergies/Adverse Reactions: cefaclor [From Ceclor] Allergy (Verified 01/07/20 01:11) sulfamethoxazole [From Bactrim] Allergy (Verified 01/07/20 01:11) tramadol [From Ultram] Allergy (Verified 01/07/20 01:11) trimethoprim [From Bactrim] Allergy (Verified 01/07/20 01:11) Past Medical History Neurological Medical History: Reports: Hx Migraine Renal/ Medical History: Denies: Hx Peritoneal Dialysis Past Surgical History: Reports: Hx Adenoidectomy, Hx Kidney (Renal Surgery) - R sided tumor resected, Hx Tonsillectomy - Immunizations Immunizations up to date: Yes Physical Exam - General General appearance: Appears well, Alert Notes: Right lower pelvic tenderness, exam limited as patient is sitting in wheelchair Doctor's Discharge - Discharge Referrals: RAS GURROLA MD [Primary Care Provider] - Follow up as needed
[2020-05-06 18:16] LABS: ABSOLUTE EOSINOPHILS # (AUTO) 0.1 10^3/uL (0.0-0.6); ABSOLUTE LYMPHOCYTES (AUTO) 1.7 10^3/uL (0.5-4.7); ABSOLUTE MONOCYTES (AUTO) 0.5 10^3/uL (0.1-1.4); ABSOLUTE NEUT (AUTO) 6.8 10^3/uL (1.7-8.2); BASOPHILS % (AUTO) 0.5 % (0-2); HEMATOCRIT 45.6 % (37.9-51.0); LYMPHOCYTES % (AUTO) 18.8 % (13-45); MEAN CORPUSCULAR HGB CONC 35.1 g/dL (32.0-36.0); MEAN CORPUSCULAR VOLUME 88 fl (80-97); PLATELET COUNT 321 10^3/uL (150-450); RED BLOOD COUNT 5.16 10^6/uL (4.35-5.55); RED CELL DISTRIBUTION WIDTH 13.8 % (11.5-14.0); SEGMENTED NEUTROPHILS % (AUTO) 74.7 % (42-78); TOTAL CELLS COUNTED % (AUTO) 100 %; WHITE BLOOD COUNT 9.1 10^3/uL (4.0-10.5)
[2020-05-06 18:25] LABS: APPEARANCE,URINE CLEAR; BILIRUBIN,URINE NEGATIVE (NEGATIVE); COLOR,URINE YELLOW; GLUCOSE, URINE NEGATIVE (NEGATIVE); KETONES,URINE NEGATIVE (NEGATIVE); LEUKOCYTE ESTERASE,URINE NEGATIVE (NEGATIVE); NITRITE,URINE NEGATIVE (NEGATIVE); PROTEIN,URINE NEGATIVE (NEGATIVE); URINE SPECIFIC GRAVITY 1.024; UROBILINOGEN,URINE NEGATIVE mg/dL (<2.0)
[2020-05-06 18:33] LABS: ALBUMIN 4.6 g/dL (3.5-5.0); ALKALINE PHOSPHATASE 77 U/L (38-126); ANION GAP 9 (5-19); ASPARTATE AMINO TRANSFERASE 82 U/L (17-59); BILIRUBIN,DIRECT 0.2 mg/dL (0.0-0.4); BILIRUBIN,TOTAL 0.6 mg/dL (0.2-1.3); BLOOD UREA NITROGEN 12 mg/dL (7-20); CALCIUM 9.4 mg/dL (8.4-10.2); CARBON DIOXIDE 27 mmol/L (22-30); CHLORIDE 102 mmol/L (98-107); GLUCOSE 90 mg/dL (75-110); POTASSIUM 4.1 mmol/L (3.6-5.0); TOTAL PROTEIN 7.5 g/dL (6.3-8.2)
[2020-05-06] MEDS ORDERED: KETOROLAC TROMETHAMINE INJ/PF 30 MG/1 ML SDV IV ONE (21:47)
[2020-05-06] MEDS ORDERED: NORMAL SALINE 1000 ML 1,000 ML IV ONE (21:48)
--- NOTE | 2020-05-06 21:48 | ER Document Report ---
ED GI/ - General Chief Complaint: Abdominal Pain Stated Complaint: ABDOMINAL PAIN Time Seen by Provider: 05/06/20 16:32 Primary Care Provider: RAS GURROLA MD [NO LOCAL MD] - Follow up as needed TRAVEL OUTSIDE OF THE [place] IN LAST 30 DAYS: No - HPI Notes: 05/06/20 22:23 Patient is a 30-year-old male with a past medical history of renal mass status post removal several years ago who presents with right lower quadrant abdominal pain. Patient states he had an IV CT scan this morning with renal to evaluate a cyst on his left kidney. He states that around 3 PM he developed sharp right- sided lower quadrant pain. It is worse with palpation. No diarrhea or constipation. No nausea or vomiting. No fevers. He took Aleve without relief. Patient states pain has worsened since he has been in the ER. - Related Data Allergies/Adverse Reactions: cefaclor [From Ceclor] Allergy (Verified 05/06/20 22:42) sulfamethoxazole [From Bactrim] Allergy (Verified 05/06/20 22:42) tramadol [From Ultram] Allergy (Verified 05/06/20 22:42) trimethoprim [From Bactrim] Allergy (Verified 05/06/20 22:42) Past Medical History - General Information source: Patient - Social History Smoking Status: Never Smoker Family History: Reviewed & Not Pertinent, CAD - Mother from a heart attack at approximately 46 years of age., COPD, DM, Other - Migraine headaches Neurological Medical History: Reports: Hx Migraine Renal/ Medical History: Denies: Hx Peritoneal Dialysis Past Surgical History: Reports: Hx Adenoidectomy, Hx Kidney (Renal Surgery) - R sided tumor resected, Hx Tonsillectomy - Immunizations Immunizations up to date: Yes Review of Systems - Review of Systems Notes: CONSTITUTIONAL: No fever, fatigue or weight loss. SKIN: No rash. HENT: No congestion, ear pain, or sore throat. EYES: No recent vision problems or eye pain. CARDIOVASCULAR: No chest pain or edema. RESPIRATORY: No cough, shortness of breath, congestion, or wheezing. GASTROINTESTINAL: No vomiting, bloody stools or diarrhea. Positive for right lower quadrant abdominal pain. GENITOURINARY: No dysuria. No testicular pain. MUSCULOSKELETAL: No joint pain or swelling. LYMPHATIC: No swollen glands. NEUROLOGIC: No seizures. No headache, focal weakness or sensory changes. HEMATOLOGIC: No unusual bruising or bleeding. PSYCHIATRIC: No depression or anxiety. Physical Exam - Vital signs Vitals: Temp Pulse Resp BP Pulse Ox 98.1 F 85 19 124/79 96 05/06/20 16:36 05/06/20 16:36 05/06/20 16:36 05/06/20 16:36 05/06/20 16:36 - General General appearance: Appears well Notes: VITAL SIGNS: Within normal limits. GENERAL: No acute distress, non-toxic appearance. HEAD: Normal with no signs of head trauma. EYES: EOMI, conjunctiva normal, no discharge. EARS: Hearing grossly intact. NOSE: Normal. NECK: Normal range of motion, no tenderness, supple, no lymphadenopathy, No adenopathy, no JVD. CHEST: Clear breath sounds bilaterally. No wheezes, rales, or rhonchi. CARDIAC: Regular rate and rhythm. S1 and S2, without murmurs, gallops, or rubs. VASCULAR: No Edema. Peripheral pulses normal and equal in all extremities. ABDOMEN: Soft, no masses or pulsatile masses. Discomfort to palpation of right lower quadrant. GASTROINTESTINAL: Bowel sounds normal GENITOURINARY: Normal, No tenderness MUSCULOSKELETAL: Good range of motion of all major joints. Extremities without clubbing, cyanosis or edema. NEUROLOGICAL: Alert and oriented x 3. No focal sensory or strength deficits. Speech normal. Follows commands appropriately. PSYCHIATRIC: Normal Affect, judgement and mood. SKIN: Normal appearance with no rashes or lesions. Course - Re-evaluation Re-evalutation: 05/06/20 22:25 Patient states he is very concerned this could be appendicitis. I had a long discussion with him about a CT scan because he did have one this morning with renal. I am unsure if they did a dedicated renal CT scan or a general abdomen pelvis CT and I do not have those records. I did discuss with him the risk of cancer in the future from numerous CAT scans. He states he understands the risks. He states he wants another CAT scan today to find out if he has appendicitis. I will do it without IV contrast as he had IV contrast this morning. Patient CT scan is nonacute. I informed him that he has cholelithiasis as well as 2 small inguinal hernias. Patient states he has some relief from Toradol. His exam remains benign. I instructed him to follow-up with his PCP. He was told that he can take Tylenol and ibuprofen as directed. Patient was given strict return precautions to return to the ER within 24 hours if symptoms or not improved or he develops a fever. 05/07/20 05:02 - Vital Signs Vital signs: Temp Pulse Resp BP Pulse Ox 98.0 F 85 16 133/77 H 99 05/07/20 00:32 05/07/20 00:32 05/07/20 00:32 05/07/20 00:32 05/07/20 00:32 - Laboratory Result Diagrams: 05/06/20 16:57 05/06/20 16:57 Laboratory results interpreted by me: 05/06/20 16:57 AST 82 H ALT 162 H - Diagnostic Test Radiology reviewed: Image reviewed, Reports reviewed Discharge - Discharge Clinical Impression: Transaminitis Abdominal pain Qualifiers: Abdominal location: right lower quadrant Qualified Code(s): R10.31 - Right lower quadrant pain Cholelithiases Qualifiers: Cholelithiasis location: gallbladder Cholecystitis presence: without cholecystitis Biliary obstruction: without biliary obstruction Qualified Code(s): K80.20 - Calculus of gallbladder without cholecystitis without obstruction Condition: Stable Disposition: HOME, SELF-CARE Instructions: Abdominal Pain ([facility]) Additional Instructions: Your work-up today is reassuring. Follow-up with your family doctor. Please return to the ER for any return of symptoms. Referrals: RAS GURROLA MD [NO LOCAL MD] - Follow up as needed
[2020-05-06] MEDS ORDERED: KETOROLAC TROMETHAMINE 60 MG/2 ML SDV IM ONE (22:28)
--- NOTE | 2020-05-06 23:34 | RADIOLOGY REPORT (SQ) ---
CT abdomen and pelvis without contrast on 05/06/2020 at 10:56 PM CLINICAL INDICATION: Right lower quadrant pain TECHNIQUE: Multiple axial images are obtained throughout the abdomen and pelvis without the administration of contrast. This exam was performed according to our departmental dose-optimization program, which includes automated exposure control, adjustment of the mA and/or kV according to patient size and/or use of iterative reconstruction technique. Total DLP is 1534.54 mGy*cm. COMPARISON: 01/07/2020 FINDINGS: Abdomen: The lung bases are clear. There is some contrast within the bilateral renal collecting system and within the bladder, per the technologist the patient had contrast administration earlier today although from an unknown presumably outside exam. There is some high density within the gallbladder consistent with vicarious excretion of contrast. This contrast within the gallbladder does outline two low-density structures within the inferior gallbladder consistent with gallstones. Postsurgical changes from prior partial nephrectomy are noted in the lower pole of the right kidney. No definite renal or ureteral stones are noted although the contrast in the collecting system does limit the evaluation of this there is no evidence of hydronephrosis. The unenhanced solid abdominal organs are otherwise unremarkable. There is no abdominal adenopathy. There is no free fluid or free air within the abdomen. The abdominal portion of the GI tract is unremarkable. Pelvis: There is no free fluid in the pelvis. There are small bilateral inguinal hernias containing only fat. There is no pelvic adenopathy. The pelvic portion of the GI tract including the appendix is unremarkable. No bony abnormality is noted. IMPRESSION: 1. Cholelithiasis. 2. Otherwise essentially unremarkable exam.
[2020-05-07 00:37] VITALS: BP 133/77
== END 2020-05-07 00:38 | disposition home or self-care (01) ==
LOC: ER 16:27
DX: K80.20 Calculus of gallbladder without cholecystitis without obstruction (principal); R10.31 Right lower quadrant pain; R74.01 Elevation of levels of liver transaminase levels; Z88.2 Allergy status to sulfonamides; Z88.8 Allergy status to other drugs, medicaments and biological substances; Z90.5 Acquired absence of kidney
CPT/HCPCS: 99285; 96372; 96360; 36415; 83690; 85025; 80053; 81001; 74176; J1885; J7030